=== PATIENT | male | born 1935 | race Caucasian/White ===

== ENCOUNTER 2017-11-01 22:52 | Inpatient (IN) | payer OTHER, MEDICARE ==
[~2017-11-01] VITALS: Ht 172.7 cm; Wt 79.4 kg
[~2017-11-01 22:52] MED LIST: ALPRAZOLAM0.5 MG PO; CALCIUM + D 6001 TAB PO; ECOTRIN81 MG PO; ELIQUIS5 M1 PO; FISH OIL CONC1000 M1 PO; FISH OIL CONC1000 MG; LISINOPRIL/HCTZ1 TAB PO; MEDROL4 M1 PO; METOPROLOL TART25 M1 PO; PANTOPRAZOLE SO40 MG PO; PREDNISONE5 MG PO; VITAMIN D250000 UNIT PO
--- NOTE | 2017-11-01 22:54 | ED CARDIAC/CP/PALPITATIONS ---
History of Present Illness General Chief Complaint: Chest Pain Stated Complaint: CP Source: patient, old records Exam Limitations: no limitations Vital Signs & Intake/Output Vital Signs & Intake/Output Vital Signs Date Time Temp Pulse Resp B/P B/P Pulse O2 O2 Flow FiO2 Mean Ox Delivery Rate 11/01 2306 98.8 64 18 128/64 96 Room Air ED Intake and Output 11/02 0000 11/01 1200 Intake Total Output Total Balance Patient 175 lb Weight Weight Reported by Patient Measurement Method Allergies Coded Allergies: Penicillins (Severe, UNKNOWN REACTION PER PT 02/24/16) Reconcile Medications Alprazolam 0.25 MG TABLET 1 TAB PO TID PRN ANXIETY (Reported) Apixaban (Eliquis) 5 MG TABLET 1 TAB PO BID A.fib Aspirin (Ecotrin) 81 MG ECT 1 TAB PO DAILY BLOOD THINNER (Reported) Calcium/Vitamin D (Calcium + D) 600 MG/200 IU TAB 1 TAB PO DAILY SUPPLEMENT ( Reported) LISINOPRIL/HYDROCHLOROTHIAZIDE (Lisinopril-Hctz 10-12.5 MG Tab) 10 MG-12.5 MG TABLET 1 TAB PO DAILY BP (Reported) Methylprednisolone (Medrol) 4 MG TABLET 1 TAB PO BID PMR (Reported) Metoprolol Tartrate 25 MG TABLET 0.5 TAB PO BID HEART RATE [place]-3 Fatty Acids (Fish Oil Concentrate) 1,000 MG CAPSULE 1 CAP PO DAILY SUPPLEMENT (Reported) Pantoprazole Sodium 40 MG TABLET.DR 1 TAB PO DAILY AC GI (Reported) Triage Nurses Notes Reviewed? yes Onset: Abrupt Duration: SINCE 2 PM Timing: multiple episodes today Quality/Severity: moderate Location: central Radiation: back Activities at Onset: activity Prior Chest Pain/Card Workup: no prior chest pain Associated Symptoms: NAUSEA HPI: This is an 82-year-old male with history of hypertension, A. fib on Eliquis who presents to the ER for chief complaint of chest pain that started at 2:00. He describes it as a painful sensation waxing and waning. It radiates into the back between his shoulder blades. Tonight he feels it got worse. He doesn't take an aspirin but takes daily Eliquis. No nitroglycerin. History of atrial fibrillation as reported above. He does not feel any palpitations. No shortness of breath. He was initially nauseous and thought he was going to vomit but did not. Denies any radiation of the pain to his shoulders or arms. He did have some jaw pain earlier and facial pain earlier which has resolved. His. Patient does not have a known history of coronary disease in the past before. He states that he has had chest pain multiple times in the past that he has attributed to indigestion. Past History Travel History Traveled to [place] past 21 day No Medical History Any Pertinent Medical History? see below for history Neurological: NONE EENT: HEARING LOSS Cardiovascular: AFIB, hypertension Respiratory: NONE Gastrointestinal: GERD Hepatic: NONE Renal: NONE Musculoskeletal: POLYMYALGIA RHEUMATICA Psychiatric: NONE Endocrine: NONE Blood Disorders: NONE Cancer(s): colon/rectal cancer, melanoma, prostate cancer INS[employer]ANCE [employer] SALES/Reproductive: NONE History of MRSA: No History of VRE: No History of CDIFF: No Tetanus Vaccine: 08/27/14 Surgical History Surgical History: PROSTATE REMOVAL, CA BACK SURGERY Psychosocial History Who do you live with Spouse Services at Home None What is your primary language Indonesian Tobacco Use: Never used ETOH Use: denies use Family History Family History, If Any: SISTER FHx: brain cancer MOTHER Relation not specified for: FH: breast cancer Hx Contributory? No Review of Systems Review of Systems Constitutional: Denies: see HPI, fever. EENTM: Reports: no symptoms. Respiratory: Denies: cough, short of breath, sputum production. Cardiovascular: Reports: chest pain. Denies: palpitations, peripheral edema. GI: Reports: nausea. Denies: diarrhea, vomiting. Genitourinary: Reports: no symptoms. Musculoskeletal: Reports: no symptoms. Skin: Reports: no symptoms. Neurological/Psychological: Reports: no symptoms. Hematologic/Endocrine: Denies: bruising, bleeding, polyuria, polydipsia. Immunologic/Allergic: Denies: splenectomy. All Other Systems: Reviewed and Negative Physical Exam Physical Exam General Appearance: well developed/nourished, alert, awake, anxious Head: atraumatic, normal appearance Eyes: Bilateral: normal appearance, PERRL, EOMI. Ears, Nose, Throat: normal pharynx, hearing grossly normal Neck: normal inspection, supple, full range of motion Respiratory: normal breath sounds, chest non-tender, no respiratory distress Cardiovascular: regular rate/rhythm Peripheral Pulses: 2+ radial (R), 2+ radial (L) Gastrointestinal: normal bowel sounds, soft, non-tender Back: normal inspection, normal range of motion Extremities: normal inspection, normal capillary refill, normal range of motion, no edema Neurologic/Psych: no motor/sensory deficits, awake, alert, oriented x 3 Skin: intact, normal color, warm/dry Core Measures ACS in differential dx? Yes CVA/TIA Diagnosis No Sepsis Present: No Sepsis Focused Exam Completed? No Progress Differential Diagnosis: AMI, aortic dissection, myocarditis, pancreatitis, pericarditis, pulmonary embolism, unstable angina Plan of Care: Orders Procedure Date/time Status Heart Healthy Diet 11/02 B Active Patient Data 11/[address] in observation 11/02 23 Active ED Holding Orders 11/02 23 Active Vital Signs 11/02 23 Active Code Status 11/02 23 Active Add-on Test (ER Only) 11/01 231 Active Telemetry/Seafood Preparer 11/01 230 Active LIPASE 11/01 230 Complete TROPONIN LEVEL 11/01 2257 Complete PARTIAL THROMBOPLASTIN TIME 11/01 2257 Complete PROTHROMBIN TIME 11/01 2257 Complete MAGNESIUM 11/01 2257 Complete COMPREHENSIVE METABOLIC PANEL 11/01 2257 Complete CBC WITHOUT DIFFERENTIAL 11/01 2257 Complete EKG 11/01 2252 Active Current Medications Sig/Nelly Start time Last Medication Dose Stop Time Status Admin Aspirin 325 MG ONCE ONE 11/01 2314 CAN (Aspirin) 11/01 2315 Laboratory Tests 11/01/17 2300: Anion Gap 14, Estimated GFR > 60, BUN/Creatinine Ratio 21.8, Glucose 112 H, Calcium 10.2, Magnesium 2.2, Total Bilirubin 0.3, AST 24, ALT 48, Alkaline Phosphatase 65, Troponin I < 0.01, Total Protein 7.2, Albumin 4.5, Globulin 2.7, Albumin/Globulin Ratio 1.7, Lipase 373 H, PT 11.8, INR 1.13, APTT 30, CBC w Diff NO MAN DIFF REQ, RBC 5.38, MCV 89.4, MCH 28.3, RDW 16.3 H, MPV 8.5, Gran % 72.8, Lymphocytes % 14.5 L, Monocytes % 11.3 H, Eosinophils % 1.0, Basophils % 0.4, Absolute Granulocytes 10.3 H, Absolute Lymphocytes 2.0, Absolute Monocytes 1.6 H, Absolute Eosinophils 0.1, Absolute Basophils 0.1, PUBS MCHC 31.7 L CP RESOLVED AFTER ASPIRIN/NITRO. CT DISEECTION SCAN NORMAL. D/W DR GAVIN, PLACE ON TELE FOR 23 HR OBS. LEFT MESSAGE FOR DR GARCIA TO EVALUATE HIS PATIENT IN AM. Diagnostic Imaging: Viewed by Me: Radiology Read, CT Scan. Discussed w/RAD: Radiology Read, CT Scan. Radiology Impression: PATIENT: MAGUE DELVALLE JR PRESENT AGE: 82 PATIENT ACCOUNT NO: [id number] : 37 LOCATION: [facility] ORDERING PHYSICIAN: Elif Beebe MD SERVICE DATE: 11/01/17 EXAM TYPE: CAT - CTA CHEST-AORTIC DISSECTION EXAMINATION: CT ANGIOGRAM CHEST WITHOUT AND WITH CONTRAST CLINICAL INFORMATION: Chest pain radiating to the back. History of atrial fibrillation. COMPARISON: Radiograph from today. TECHNIQUE: Initial noncontrast chest CT was performed. Multidetector volumetric imaging of the chest was then performed after administration of 10 5 mL of Optiray 350 IV contrast. Coronal, sagittal, and three-dimensional/MIP reformatted images were obtained and reviewed. DLP: 534 mGy-cm FINDINGS: Vascular: 1. There is a 3 cusped aortic valve. Normal origins of the coronary arteries. 2. The ascending thoracic aorta is normal in course and caliber without dissection. 3. The aortic arch is normal in course and caliber. Normal 3 vessel branching configuration. The great vessels are grossly patent. 4. The descending thoracic aorta is normal in caliber with slightly tortuous course. No dissection. Scattered atherosclerotic calcifications noted. 5. No central pulmonary embolism noted. Nonvascular: The central airways are patent. Dependent atelectasis bilaterally in the lungs. No dense consolidation. No pleural effusion or pneumothorax. The heart is mildly prominent. No pericardial effusion. No mediastinal lymphadenopathy. There is a 1.7 cm hypoattenuating nodule in the right lobe of the thyroid gland. No axillary lymphadenopathy. No chest wall mass. The visualized portion of the upper abdomen is unremarkable. No acute or suspicious osseous abnormality. Multilevel degenerative changes are seen in the spine. IMPRESSION: 1. No acute vascular abnormality. No evidence of aortic aneurysm or dissection. 2. No acute pulmonary findings. Bibasilar atelectasis. 3. 1.7 cm right thyroid nodule. This can be further evaluated by ultrasound. DICTATED BY: [facility] DATE/TIME DICTATED:11/01/17 507 COMMISSION ASSOCIATE: ALISON DATE/TIME TRANSCRIBED:11/01/172349 CONFIDENTIAL, DO NOT COPY WITHOUT APPROPRIATE AUTHORIZATION. <Electronically signed in Other Vendor System> SIGNED BY: Deon Kelley MD 11/01/172357 CXR Impression: PATIENT: MAGUE DELVALLE JR PRESENT AGE: 82 PATIENT ACCOUNT NO: [id number] : 37 LOCATION: [facility] ORDERING PHYSICIAN: Elif Beebe MD SERVICE DATE: 11/01/17 EXAM TYPE: RAD - XRY -PORTABLE CHEST XRAY EXAMINATION: XR PORTABLE CHEST CLINICAL INFORMATION: Chest pain radiating to the back COMPARISON: Chest x-ray 03/07/2016 TECHNIQUE: Portable frontal view of the chest was obtained. 11:06 PM FINDINGS: Cardiac mediastinal contours are normal. No widening of the mediastinum. Lung volume is low. No acute abnormality. No significant pulmonary vascular congestion. No infiltrate or pleural effusion. No pneumothorax. IMPRESSION: No acute abnormality of chest. DICTATED BY: Ubaldo Silvestre MD DATE/TIME DICTATED:11/01/172321 COMMISSION ASSOCIATE:ALISON DATE/TIME TRANSCRIBED:11/01/172321 CONFIDENTIAL, DO NOT COPY WITHOUT APPROPRIATE AUTHORIZATION. <Electronically signed in Other Vendor System> SIGNED BY: Ubaldo Silvestre MD 11/01/172325 Initial ED EKG: NSR, LVH, LAD Rhythm Strip: normal sinus rhythm Departure Departure Time of Disposition: 24 Disposition: STILL A PATIENT Condition: Stable Clinical Impression Primary Impression: ACS (acute coronary syndrome) Referrals: [facility],Yonas Figueredo (PCP/Family) Departure Forms: Customer Survey General Discharge Information Observation Note Spoke With: Chen Gavin MD Physician Advisor Notified: KINSEY EBCK DO Place Patient In: Non-ED OBS Care Area Rationale for Observation: My rational for observation is as follows [TELE MONITOR, ASPIRIN, NITRATES, SERIAL EKG/TROPONIN, CARDIOLOGY EVALUATION, CONSIDER ECHOCARDIOGRAM]. Critical Care Note Critical Care Note Critical Care Time: non-applicable
[2017-11-01 23:13] LABS: ABSOLUTE BASOPHIL COUNT 0.1 /CUMM (0.0-0.2); ABSOLUTE EOSINOPHIL COUNT 0.1 /CUMM (0.0-0.7); ABSOLUTE GRANULOCYTE CT 10.3 /CUMM (1.4-6.5); ABSOLUTE MONOCYTE COUNT 1.6 /CUMM (0.10-0.60); BASOPHIL % 0.4 % (0.0-2.0); GRANULOCYTE % 72.8 % (42.2-75.2); MEAN CORPUSCULAR HGB 28.3 PG (27.0-31.0); MEAN CORPUSCULAR HGB CONC 31.7 G/DL (33.0-37.0); MEAN CORPUSCULAR VOLUME 89.4 FL (80.0-94.0); MEAN PLATELET VOLUME 8.5 FL (7.4-10.4); PLATELET COUNT 270 /CUMM (130-400); RBC DISTRIBUTION WIDTH 16.3 % (11.5-14.5); RED BLOOD CELL CT 5.38 /CUMM (4.70-6.10); WHITE BLOOD CELL COUNT 14.1 /CUMM (4.8-10.8)
[2017-11-01 23:22] LABS: PT 11.8 SEC (9.4-12.5); PTT 30 SEC (25-37)
--- NOTE | 2017-11-01 23:26 | RADIOLOGY REPORT ---
EXAMINATION: XR PORTABLE CHEST CLINICAL INFORMATION: Chest pain radiating to the back COMPARISON: Chest x-ray 03/07/2016 TECHNIQUE: Portable frontal view of the chest was obtained. 11:06 PM FINDINGS: Cardiac mediastinal contours are normal. No widening of the mediastinum. Lung volume is low. No acute abnormality. No significant pulmonary vascular congestion. No infiltrate or pleural effusion. No pneumothorax. IMPRESSION: No acute abnormality of chest.
--- NOTE | 2017-11-01 23:58 | CT SCAN REPORT ---
EXAMINATION: CT ANGIOGRAM CHEST WITHOUT AND WITH CONTRAST CLINICAL INFORMATION: Chest pain radiating to the back. History of atrial fibrillation. COMPARISON: Radiograph from today. TECHNIQUE: Initial noncontrast chest CT was performed. Multidetector volumetric imaging of the chest was then performed after administration of 10 5 mL of Optiray 350 IV contrast. Coronal, sagittal, and three-dimensional/MIP reformatted images were obtained and reviewed. DLP: 534 mGy-cm FINDINGS: Vascular: 1. There is a 3 cusped aortic valve. Normal origins of the coronary arteries. 2. The ascending thoracic aorta is normal in course and caliber without dissection. 3. The aortic arch is normal in course and caliber. Normal 3 vessel branching configuration. The great vessels are grossly patent. 4. The descending thoracic aorta is normal in caliber with slightly tortuous course. No dissection. Scattered atherosclerotic calcifications noted. 5. No central pulmonary embolism noted. Nonvascular: The central airways are patent. Dependent atelectasis bilaterally in the lungs. No dense consolidation. No pleural effusion or pneumothorax. The heart is mildly prominent. No pericardial effusion. No mediastinal lymphadenopathy. There is a 1.7 cm hypoattenuating nodule in the right lobe of the thyroid gland. No axillary lymphadenopathy. No chest wall mass. The visualized portion of the upper abdomen is unremarkable. No acute or suspicious osseous abnormality. Multilevel degenerative changes are seen in the spine. IMPRESSION: 1. No acute vascular abnormality. No evidence of aortic aneurysm or dissection. 2. No acute pulmonary findings. Bibasilar atelectasis. 3. 1.7 cm right thyroid nodule. This can be further evaluated by ultrasound.
--- NOTE | 2017-11-02 00:49 | History & Physical ---
[facility] 11/02/17 0049: General Information and HPI MD Statement: I have seen and personally examined MAGUE DELVALLE JR and documented this H&P. The patient is a 82 year old M who presented with a patient stated chief complaint of [CP]. Source of Information: patient Exam Limitations: no limitations History of Present Illness: The patient is 82-year-old gentleman with past medical history of atrial fibrillation on Eliquis and metoprolol, polymyalgia rheumatica, GERD, hypertension, prostate cancer status post surgery and consists versus precancerous colon polyp status post polypectomy The patient is presenting to [facility] ED on 11/02 with complaint of chest pain The patient was in usual state of health until this afternoon when he experienced a chest pain around 2 PM. Patient attributed this chest pain to his history of GERD and tried Tums and pantoprazole. It resolved after sometime. Tonight when patient was getting ready for bed patient started experiencing chest pain again which was much more uncomfortable and made patient feel nervous. Patient describes it as a funny feeling. The patient's chest pain was located in the middle of the chest and is somewhat in epigastric region as well, radiating between his shoulder blades. He also experienced pain bilaterally on his cheeks. It was not radiating to left arm or jaw. Patient felt nauseated little short of breath. This prompted a visit to ED the pain resolved after receiving nitroglycerin. Currently patient is pain-free. As per patient he has had multiple episodes of chest pain in the past which he has attributed to GERD and indigestion Review of system is negative for fevers chills or urinary complaints. Denies cough, wheezing, change in bowel movement Of note patient was diagnosed of atrial fibrillation in February 2016 and echo showed ejection fraction of 60%. Patient underwent a stress test 15 years ago which was within normal limits Allergies/Medications Allergies: Coded Allergies: Penicillins (Severe, UNKNOWN REACTION PER PT 02/24/16) Home Med list Alprazolam 0.25 MG TABLET 1 TAB PO TID PRN ANXIETY (Reported) Apixaban (Eliquis) 5 MG TABLET 1 TAB PO BID A.fib Aspirin (Ecotrin) 81 MG ECT 1 TAB PO DAILY BLOOD THINNER (Reported) Calcium/Vitamin D (Calcium + D) 600 MG/200 IU TAB 1 TAB PO DAILY SUPPLEMENT ( Reported) Cyanocobalamin (Vitamin B-12) 1,000 MCG TABLET 3 TAB PO DAILY SUPPLEMENT ( Reported) LISINOPRIL/HYDROCHLOROTHIAZIDE (Lisinopril-Hctz 10-12.5 MG Tab) 10 MG-12.5 MG TABLET 1 TAB PO DAILY BP (Reported) Magnesium Oxide (Magnesium) 400 MG CAPSULE 1 CAP PO DAILY SUPPLEMENT ( Reported) Methylprednisolone (Medrol) 4 MG TABLET 1 TAB PO TID PMR (Reported) Metoprolol Tartrate 25 MG TABLET 1 TAB PO BID HEART RATE [place]-3 Fatty Acids (Fish Oil Concentrate) 1,000 MG CAPSULE 1 CAP PO DAILY SUPPLEMENT (Reported) Pantoprazole Sodium 40 MG TABLET.DR 1 TAB PO DAILY AC GI (Reported) Compliance With Home Meds: GOOD Past History Travel History Traveled to [place] past 21 day No Medical History Neurological: NONE EENT: HEARING LOSS Cardiovascular: AFIB, hypertension Respiratory: NONE Gastrointestinal: GERD Hepatic: NONE Renal: NONE Musculoskeletal: POLYMYALGIA RHEUMATICA Psychiatric: NONE Endocrine: NONE Blood Disorders: NONE Cancer(s): colon/rectal cancer, prostate cancer DIRECTOR TELEVISION/Reproductive: NONE History of MRSA: No History of VRE: No History of CDIFF: No Tetanus Vaccine: 08/27/14 Surgical History Surgical History: PROSTATE REMOVAL, CA BACK SURGERY ECHO Results (as available) Date of last Echo 02/25/16 EF% 60 Past Family/Social History Family History Relations & Conditions if any MOTHER (brain CA). FATHER (CVA). SISTER (breast CA). Psychosocial History Where do you live? Home Who Do You Live With? spouse Services at Home: None Primary Language: Malian Smoking Status: Never Smoked ETOH Use: occasional use Illicit Drug Use: denies illicit drug use Functional Ability ADLs Independent: dressing, eating, toileting, bathing. Ambulation: independent IADLs Independent: shopping, housework, finances, food prep, telephone, transportation , medication admin. Review of Systems Review of Systems Constitutional: Denies: chills, malaise. EENTM: Reports: no symptoms. Cardiovascular: Reports: chest pain. Denies: palpitations, syncope. Respiratory: Denies: sputum production, wheezing. GI: Reports: no symptoms. Genitourinary: Reports: no symptoms. Musculoskeletal: Reports: no symptoms. Skin: Reports: no symptoms. Exam & Diagnostic Data Last 24 Hrs of Vital Signs/I&O Vital Signs Date Time Temp Pulse Resp B/P B/P Pulse O2 O2 Flow FiO2 Mean Ox Delivery Rate 11/01 2305 98.8 64 18 128/64 96 Room Air Intake & Output 11/02 0800 11/02 0000 11/01 1600 Intake Total Output Total Balance Patient 175 lb Weight Weight Reported by Patient Measurement Method Physical Exam General Appearance Alert, Oriented X3, Cooperative, No Acute Distress Skin No Rashes HEENT Atraumatic, PERRLA, EOMI, Mucous Membr. moist/pink Neck Supple Cardiovascular Normal S1, Normal S2, No Murmurs Lungs Clear to Auscultation, Normal Air Movement Abdomen Normal Bowel Sounds, Soft, No Tenderness Neurological Normal Speech Extremities No Clubbing, No Cyanosis, No Edema, small bruises Last 24 Hrs of Labs/Nikita: Laboratory Tests 11/01/170: Anion Gap 14, Estimated GFR > 60, BUN/Creatinine Ratio 21.8, Glucose 112 H, Calcium 10.2, Magnesium 2.2, Total Bilirubin 0.3, AST 24, ALT 48, Alkaline Phosphatase 65, Troponin I < 0.01, Total Protein 7.2, Albumin 4.5, Globulin 2.7, Albumin/Globulin Ratio 1.7, Lipase 373 H, PT 11.8, INR 1.13, APTT 30, CBC w Diff NO MAN DIFF REQ, RBC 5.38, MCV 89.4, MCH 28.3, RDW 16.3 H, MPV 8.5, Gran % 72.8, Lymphocytes % 14.5 L, Monocytes % 11.3 H, Eosinophils % 1.0, Basophils % 0.4, Absolute Granulocytes 10.3 H, Absolute Lymphocytes 2.0, Absolute Monocytes 1.6 H, Absolute Eosinophils 0.1, Absolute Basophils 0.1, PUBS MCHC 31.7 L Diagnostic Data EKG Results atrial fibrillation HR 60's narrow QRS complex, good RR progression, QTC 400, No ST segment changes, Normal appearing T waves CXR Results IMPRESSION: No acute abnormality of chest Other Results CT ANGIOGRAM CHEST WITHOUT AND WITH CONTRAST IMPRESSION: 1. No acute vascular abnormality. No evidence of aortic aneurysm or dissection. 2. No acute pulmonary findings. Bibasilar atelectasis. 3. 1.7 cm right thyroid nodule. This can be further evaluated by ultrasound. ECHOCARDIOGRAM 02/25/16 1. Mild to moderate aortic sclerosis is present with minimal to mild aortic insufficiency. 2. Mitral leaflet thickening is present with minimal to mild mitral insufficiency and mild left atrial enlargement. There is no evidence of valvular prolapse. 3. A physiologic pericardial effusion is present. 4. The left ventricular chamber size and systolic function are normal with no resting wall motion abnormalities. 5. Minimal to mild tricuspid and pulmonic insufficiency are present with no evidence of pulmonary hypertension. 6. No prior study was available for comparison. Assessment/Plan Assessment: The patient is 82-year-old gentleman with past medical history of atrial fibrillation on Eliquis and metoprolol, polymyalgia rheumatica, GERD, hypertension, prostate cancer status post surgery and consists versus precancerous colon polyp status post polypectomy The patient is presenting to [facility] ED on 11/02 with complaint of chest pain -VS are within normal limits -Pertinent labs WBC 1.1 BUN 24 lipase 373 -CTA findings dictated above, echo done in 2015 findings dictated above Patient is being admitted to telemetry floor and is being treated and evaluated for following conditions #Chest pain rule out ACS Patient is presenting with chest pain ACS needs to be ruled out. First set of troponins is negative and EKG did not show any acute ST elevations. -Telemetry monitoring -Serial troponins and EKG -Continue aspirin and metoprolol -Nitrostat -Check lipid profile -Cardiology consult in the morning -Consider echocardiogram with EKG changes/troponins positive #Leukocytosis patient is presenting with a white count of 14.1 which can be attributed to steroid use. There is no obvious source of infection. Patient denies urinary symptoms chest x-ray clear no sign of skin infection -Monitor fever and WBC curve -Monitor off antibiotics #Atrial fibrillation -Continuous telemetry monitoring. Continue metoprolol and Eliquis #Chronic medical conditions hypertension, GERD and PMR continue lisinopril, hydrochlorothiazide, omperazole and methylprednisone #Full code/heart healthy diet/DVT prophylaxis with Eliquis As Ranked By This Provider Problem List: 1. ACS (acute coronary syndrome) Core Measures/Misc (07/02) Acute Coronary Syndrome ACS Diagnosis: No Congestive Heart Failure Congestive Heart Failure Diagnosis No Cerebrovascular Accident CVA/TIA Diagnosis: No VTE (View Protocol) VTE Risk Factors Age>40 No Mechanical VTE Prophylaxis d/t N/A MechProphylax Ordered No VTE Pharm Prophylaxis d/t NA PharmProphylax ordered Sepsis (View protocol) Sepsis Present: No Sukhdev Wyatt 11/02/17 0154: Resident Review Statement Resident Statement: discussed with international logistics analyst Other Findings: 82-year-old man with past medical history of A. fib on Eliquis, hypertension, PMR on steroids, GERD, history of prostate cancer status post resection presented to ER today with complaint of mid chest pain radiating to back and both sides of face. According to patient pain started around 2:30 in afternoon when he was resting. He attributes his chest pain to indigestion. He took Maalox and pantoprazole but his pain did not go away. He denies any palpitations, difficulty breathing, diaphoresis, dizziness or lightheadedness. He was also feeling abdominal bloating and nausea. No vomiting. Upon arrival to the ER his temperature was 98.8, pulse 64, respiratory rate 18, blood pressure 128/64 and oxygen saturation 96% on room air. Pertinent labs are WBC 14.1, first troponins negative. Chest x-ray unremarkable. CTA chest did not show any aortic aneurysm or dissection. He was given aspirin 325 mg by mouth by EMS and ER he got sublingual nitroglycerin 0.4 mg 1. Upon our evaluation his chest pain has completely resolved. Problem list 1. Chest pain resolved after aspirin and sublingual nitroglycerin. History of A. fib on Eliquis. No history of FL. EKG did not show any acute ST-T wave changes. First troponin negative. Last echocardiogram 2015 did not show any significant abnormality. 2. Leukocytosis probably secondary to steroids. No evidence of any obvious infection 3. History of hypertension. On hydrochlorothiazide and lisinopril 4. History of PMR on steroids 5. History of GERD on pantoprazole Plan * Admitted on telemetry floor * Continue telemetry monitoring * Keep electrolytes within normal range * Serial troponins and EKGs * Echocardiogram * Cardio consult in a.m. * Will check fasting lipid profile * Will continue all home medications * Heart healthy diet * DVT prophylaxis * Full code RomaineJuan Jlobo 11/02/17 0350: Attending MD Review Statement Attending Statement Attending MD Statement: examined this patient, discuss w/resident/PA/THERMO CEMENTING FOLDER OPERATOR, agreed w/resident/PA/THERMO CEMENTING FOLDER OPERATOR, reviewed EMR data (avail), reviewed images, amended to note Attending Assessment/Plan: CC: Chest pain PMH: A. fib, HTN, GERD, PMR, prostate cancer, colon cancer with colonic polyp, status post resection and polypectomy Episode of chest pain. Initially patient's chest pain started around 2 PM, he thought he might be heartburn, took something and did not pay much attention. Later on after his supper patient started to notice similar pain again, more so in epigastric region going up behind the sternum and then going to back in between the scapulae, patient denied any dizziness, numbness, shortness of breath, cough or expectoration. This time the pain was not getting better so he came to ER. His pain improved after treatment with some medication in ER. When asked patient states that I may be having similar kind of pains in the past but did not pay much attention, probably secondary to heartburn, pain is random and nonexertional, , usually relieved with acid medication. Vitals: Afebrile, pulse in 60s, RR 18, blood pressure 128/64, saturating 96% on room air. On exam: A O 3, cooperative, no acute distress, neck supple, JVD normal, no lymphadenopathy, mucosa moist, no focal neurological deficit, no dependent edema , no obvious skin rashes or inflammation CVS: S1-S2, RRR. RS: Clear to auscultate bilaterally. Abdomen: Soft, NT, ND, bowel sounds present. Labs: CBC, BMP, LFT, troponin unremarkable except mild leukocytosis, lipase 373, ECG: No acute changes CTA chest: 1. No acute vascular abnormality. No evidence of aortic aneurysm or dissection. 2. No acute pulmonary findings. Bibasilar atelectasis. 3. 1.7 cm right thyroid nodule. This can be further evaluated by ultrasound. Assessment and plan 82-year-old male with multiple comorbidities presented in ER for an episode of chest pain happened 2 times today, initially at 2 PM when he noted considering heartburn, second episode after meal this evening, radiating to back and pain relieved only after nitroglycerin in ER. No acute ECG changes, troponin unremarkable, complete physical examination unremarkable. Given his extensive cardiac history is severe should be ruled out, patient needs observation on telemetry floor for any further cardiac events. Errantly patient is pain-free, no indication for heparin. Thyroid no dual needs outpatient evaluation. + Chest pain rule out ACS + History of A. fib, HTN, GERD, PMR, - Place in observation on telemetry - Continuous telemetry monitoring - Serial troponin and EKGs - 2-D echo in a.m. if significant increase in troponin - Cardiology consult in a.m. - Continue aspirin, beta block in significant increase in troponin, persistent chest pain er - Continue heparin drip - Continue rest of his home medications
[2017-11-02] MEDS ORDERED: VITAMIN B-121000 MC3 PO (01:29)
[2017-11-02] MEDS ORDERED: MAGNESIUM400 M1 PO (01:31)
[2017-11-02] MEDS ORDERED: METOPROLOL TART25 M1 PO (01:32)
--- NOTE | 2017-11-02 07:46 | Cons- Cardiology ---
General Information and HPI Consulting Request Date of Consult: 11/02/17 Requested By: Chen Gavin MD Reason for Consult: chest pain Source of Information: patient, old records Exam Limitations: no limitations History of Present Illness: the patient is an 82-year-old male, well-known to me, who was last seen by me in the office within the last 2 months. His past medical history is remarkable for atrial fibrillation on oral anticoagulation, polymyalgia rheumatica, reflux disease, hypertension, prior prostate cancer, etc. The patient presented to the [place] emergency room on 11/02 with complaints of chest discomfort. Apparently, the patient began having chest discomfort in his upper epigastric area around 2 PM on the day of the visit. The symptoms were not relieved by multiple Tums, it waxed and waned, however, due to persistent symptoms which ultimately radiated to his upper back and neck, the patient came to the emergency room for further evaluation.some associated nausea and dyspnea were noted. Ultimately, in the emergency room, the patient did receive sublingual nitroglycerin which he feels helped the discomfort significantly. the patient's ECG, however, is essentially unrevealing and his serial troponins have been negative. His lipase was noted to be mildly elevated. At the moment, the patient is asymptomatic. Allergies/Medications Allergies: Coded Allergies: Penicillins (Severe, UNKNOWN REACTION PER PT 02/24/16) Home Med List: Alprazolam 0.25 MG TABLET 1 TAB PO TID PRN ANXIETY (Reported) Apixaban (Eliquis) 5 MG TABLET 1 TAB PO BID A.fib Aspirin (Ecotrin) 81 MG ECT 1 TAB PO DAILY BLOOD THINNER (Reported) Calcium/Vitamin D (Calcium + D) 600 MG/200 IU TAB 1 TAB PO DAILY SUPPLEMENT ( Reported) Cyanocobalamin (Vitamin B-12) 1,000 MCG TABLET 3 TAB PO DAILY SUPPLEMENT ( Reported) LISINOPRIL/HYDROCHLOROTHIAZIDE (Lisinopril-Hctz 10-12.5 MG Tab) 10 MG-12.5 MG TABLET 1 TAB PO DAILY BP (Reported) Magnesium Oxide (Magnesium) 400 MG CAPSULE 1 CAP PO DAILY SUPPLEMENT ( Reported) Methylprednisolone (Medrol) 4 MG TABLET 1 TAB PO TID PMR (Reported) Metoprolol Tartrate 25 MG TABLET 1 TAB PO BID HEART RATE [place]-3 Fatty Acids (Fish Oil Concentrate) 1,000 MG CAPSULE 1 CAP PO DAILY SUPPLEMENT (Reported) Pantoprazole Sodium 40 MG TABLET.DR 1 TAB PO DAILY AC GI (Reported) Current Medications: Current Medications Sig/Nelly Start time Last Medication Dose Route Stop Time Status Admin Acetaminophen 0 .STK-MED ONE 11/02 0642 DC PO Acetaminophen 650 MG Q8 11/02 0600 AC 11/02 PO 0641 Apixaban 5 MG BID 11/02 1000 AC PO Aspirin 0 .STK-MED ONE 11/02 0018 DC PO Aspirin 325 MG ONCE ONE 11/02 0015 DC 11/02 PO 11/02 0016 0016 Aspirin 325 MG ONCE ONE 11/01 2315 CAN PO 11/01 2316 Aspirin Buffered 81 MG DAILY 11/02 1000 AC PO Hydrochlorothiazide 12.5 MG DAILY 11/02 1000 AC PO Lisinopril 10 MG DAILY 11/02 1000 AC PO Magnesium Oxide 400 MG DAILY 11/02 1000 AC PO Methylprednisolone 4 MG TID 11/02 1000 AC PO Metoprolol Tartrate 25 MG BID 11/02 1000 AC PO Nitroglycerin 0 .STK-MED ONE 11/01 2333 DC SL Nitroglycerin 0.4 MG ONCE ONE 11/01 2315 DC 11/01 SL 11/01 2316 2348 Omeprazole 40 MG DAILY AC 11/02 0700 AC 11/02 PO 0641 Omeprazole 0 .STK-MED ONE 11/02 0642 DC PO Past History Travel History Traveled to [place] past 21 day No Medical History Neurological: NONE EENT: HEARING LOSS Cardiovascular: AFIB, hypertension Respiratory: NONE Gastrointestinal: GERD Hepatic: NONE Renal: NONE Musculoskeletal: POLYMYALGIA RHEUMATICA Psychiatric: NONE Endocrine: NONE Blood Disorders: NONE Cancer(s): colon/rectal cancer, prostate cancer 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 FATHER (CVA). SISTER (breast CA). Psychosocial History Where Do You Live? Home Who Do You Live With? spouse Services at Home: None Primary Language: Georgian Smoking Status: Never Smoked ETOH Use: occasional use Illicit Drug Use: denies illicit drug use Functional Ability ADLs Independent: dressing, eating, toileting, bathing. Ambulation: independent IADLs Independent: shopping, housework, finances, food prep, telephone, transportation , medication admin. ECHO Results (as available) Date of last Echo 02/25/16 EF% 60 Exam & Diagnostic Data Vital Signs and I&O Vital Signs Date Time Temp Pulse Resp B/P B/P Pulse O2 O2 Flow FiO2 Mean Ox Delivery Rate 11/02 453 70 20 155/79 98 Room Air 11/01 2306 98.8 64 18 128/64 96 Room Air Intake & Output 11/02 0800 11/02 0000 11/01 1600 11/01 0800 11/01 0000 10/31 1600 Intake Total Output Total Balance Patient 175 lb Weight Weight Reported by Patient Measurement Method Labs/Nikita Results: Laboratory Tests 11/02 11/01 0454 2300 Chemistry Sodium (137 - 145 mmol/L) 141 Potassium (3.5 - 5.1 mmol/L) 3.7 Chloride (98 - 107 mmol/L) 98 Carbon Dioxide (22 - 30 mmol/L) 29 Anion Gap (5 - 16) 14 BUN (9 - 20 mg/dL) 24 H Creatinine (0.7 - 1.2 mg/dL) 1.1 Estimated GFR (>60 ml/min) > 60 BUN/Creatinine Ratio (7 - 25 %) 21.8 Glucose (65 - 99 mg/dL) 112 H Calcium (8.4 - 10.2 mg/dL) 10.2 Magnesium (1.6 - 2.3 mg/dL) 2.2 Total Bilirubin (0.2 - 1.3 mg/dL) 0.3 AST (17 - 59 U/L) 24 ALT (21 - 72 U/L) 48 Alkaline Phosphatase (< 127 U/L) 65 Troponin I (<0.11 ng/ml) < 0.01 < 0.01 Total Protein (6.3 - 8.2 g/dL) 7.2 Albumin (3.5 - 5.0 g/dL) 4.5 Globulin (1.9 - 4.2 gm/dL) 2.7 Albumin/Globulin Ratio (1.1 - 2.2 %) 1.7 Triglycerides (<150 mg/dL) 78 Cholesterol (< 200 MG/DL) 210 H LDL Cholesterol, Calc (65 - 129 mg/dL) 150 H HDL Cholesterol (40 - 60 mg/dL) 45 Cholesterol/HDL Ratio (0.00 - 4.88 %) 5 H Lipase (23 - 300 U/L) 373 H Coagulation PT (9.4 - 12.5 SEC) 11.8 INR (0.90 - 1.17) 1.13 APTT (25 - 37 SEC) 30 Hematology CBC w Diff NO MAN DIFF REQ WBC (4.8 - 10.8 /CUMM) 14.1 H RBC (4.70 - 6.10 /CUMM) 5.38 Hgb (14.0 - 18.0 G/DL) 15.2 Hct (42 - 52 %) 48.0 MCV (80.0 - 94.0 FL) 89.4 MCH (27.0 - 31.0 PG) 28.3 RDW (11.5 - 14.5 %) 16.3 H Plt Count (130 - 400 /CUMM) 270 MPV (7.4 - 10.4 FL) 8.5 Gran % (42.2 - 75.2 %) 72.8 Lymphocytes % (20.5 - 51.1 %) 14.5 L Monocytes % (1.7 - 9.3 %) 11.3 H Eosinophils % (0 - 5 %) 1.0 Basophils % (0.0 - 2.0 %) 0.4 Absolute Granulocytes (1.4 - 6.5 /CUMM) 10.3 H Absolute Lymphocytes (1.2 - 3.4 /CUMM) 2.0 Absolute Monocytes (0.10 - 0.60 /CUMM) 1.6 H Absolute Eosinophils (0.0 - 0.7 /CUMM) 0.1 Absolute Basophils (0.0 - 0.2 /CUMM) 0.1 PUBS MCHC (33.0 - 37.0 G/DL) 31.7 L Diagnostic Data EKG Results normal sinus rhythm with no significant abnormalities CXR Results FINDINGS: Cardiac mediastinal contours are normal. No widening of the mediastinum. Lung volume is low. No acute abnormality. No significant pulmonary vascular congestion. No infiltrate or pleural effusion. No pneumothorax. IMPRESSION: No acute abnormality of chest. Other Results CTA chest: IMPRESSION: 1. No acute vascular abnormality. No evidence of aortic aneurysm or dissection. 2. No acute pulmonary findings. Bibasilar atelectasis. 3. 1.7 cm right thyroid nodule. This can be further evaluated by ultrasound. Assessment/Plan Assessment/Plan assessment: 1. Chest pain syndrome-at the moment, the symptoms may be GI in nature but the possibility of cardiac symptoms cannot be excluded. The symptoms seem to have improved with nitroglycerin which suggests the possibility of angina, esophageal spasm, etc. Despite this fact, the ECG shows no remarkable abnormalities and serial troponins are negative. 2. Leukocytosis 3. Hypertension 4. History of atrial fibrillation 5. History of PMR on steroids 6. History of reflux disease 7. Right thyroid nodule Recommendations: -Repeat ECG today. -Further evaluation to rule out the possibility of pancreatitis, etc. -Continue current treatment for now. -I discussed the situation in detail with the patient and his . I believe that the patient would benefit from a follow-up pharmacologic nuclear stress test later as an outpatient. I do not believe that the patient needs to have this done while in the hospital. Consult Acknowledgment - Thank you for your consult request.
--- NOTE | 2017-11-02 07:56 | PN-Observation ---
Delphine Smith 11/02/17 0756: Observation Note Observation Note _ I have personally examined MAGUE DELVALLE JR. him disposition is uncertain at this time. Before a determination can be made, he requires continued observation for the following reasons Rule out ACS []. Assessment/Plan Assessment: As patient is 82-year-old gentleman with past medical history significant for atrial fibrillation on Eliquis, hypertension, polymyalgia rheumatica, GERD, hypertension, prostate cancer status post resection and colonic polyps came in with chief complaint of chest pain. Patient was kept in observation on telemetry floor to rule out ACS. During his hospital stay we will address following problems Problem #1 chest pain would rule out ACS most likely is dyspepsia/ musculoskeletal in origin. Serial troponin and EKGs were done which came back negative. Cardiology evaluation was requested as patient might need a stress test which could be done as outpatient. We will do echocardiogram to look for any wall motion abnormalities valvular dysfunction and lithotomy and ejection fraction. We will provide him with proton pump inhibitors History of atrial fibrillation on anticoagulation We will continue his home dose of Eliquis Problem #3 history of hypertension We will continue all his home medications. Problem List: 1. Atrial fibrillation 2. ACS (acute coronary syndrome) DVT/Prophylaxis: pharmacological Subjective Follow-up For: Chest pain rule out ACS Complaints: no complaints Subjective: Patient was seen and examined this morning. He was lying comfortably in bed without any complaints. His chest pain was substernal, burning in nature, 4 out of 10 is not there anymore. He was slightly experiencing left arm pain which most likely is musculoskeletal in region. He remained hemodynamically stable and afebrile. Review of Systems Constitutional: Denies: chills, diaphoresis, fever. Cardiovascular: Denies: chest pain, edema, orthopena. Respiratory: Denies: hemoptysis, orthopnea. Gastrointestinal: Denies: constipation, diarrhea. Objective Last 24 Hrs of Vital Signs/I&O Vital Signs Date Time Temp Pulse Resp B/P B/P Pulse O2 O2 Flow FiO2 Mean Ox Delivery Rate 11/02 1401 97.8 78 20 153/83 96 Room Air 11/02 1130 97.0 70 18 162/92 100 Room Air 11/02 0831 98.2 63 18 158/77 98 Room Air 11/02 0454 70 20 155/79 98 Room Air 11/01 2306 98.8 64 18 128/64 96 Room Air Intake & Output 11/02 1600 11/02 0800 11/02 0000 Intake Total 200 Output Total Balance 200 Intake, Oral 200 Patient 175 lb 175 lb Weight Weight Reported by Patient Measurement Method Physical Exam General Appearance: Alert, Oriented X3, Cooperative, No Acute Distress Cardiovascular: Regular Rate, Normal S1, Normal S2 Lungs: Normal Air Movement Abdomen: Soft Extremities: No Clubbing, No Cyanosis, No Edema Serafin Swann MD 11/02/17 1417: Observation Note Observation Note _ I have personally examined MAGUE DELVALLE JR. him disposition is uncertain at this time. Before a determination can be made, he requires continued observation for the following reasons ; patient is complaining of abdominal pain and needs to be evaluated further. Addendum Addendum Patient seen and examined. Resting comfortably and not in any distress. Denies any further chest pain. Afebrile hemodynamically stable. Cardiac enzymes have been negative 2 and EKG shows no ischemic changes. Patient reports however that symptoms has become with abdominal discomfort that got worse before he developed chest discomfort. Admits to some nausea but denies any vomiting. Reports no change in his regular bowel movements. Denies any blood in the stools. It is noted on admission he had a mildly elevated lipase levels. On examination abdomen is mildly distended but soft, nontender with normal bowel sounds. No rebound tenderness or guarding. Rest of his physical exam is unremarkable. Problems: 1. Chest pain; resolved 2. Abdominal pain; elevated lipase levels is concerning for pancreatitis. 3. History of polymyalgia rheumatica. 4. Atrial fibrillation; rate controlled on anticoagulation with Eliquis. 5. Prostate cancer status post surgery Plan: -ACS has been ruled out. Follow-up with the cardiology service regarding need for further ischemic workup in the form of stress test. -Obtain CT abdomen pelvis to evaluate for pancreatitis and rule out any other intra-abdominal pathology. -Continue metoprolol for rate control. Continue anticoagulant with Eliquis. -Hydrate with half normal saline at 100 cc an hour.
[2017-11-02 16:30] VITALS: BP 138/76
--- NOTE | 2017-11-02 16:44 | CT SCAN REPORT ---
EXAMINATION: CT ABDOMEN AND PELVIS WITHOUT CONTRAST CLINICAL INFORMATION: Elevated lipase and epigastric pain. Rule out pancreatitis. COMPARISON: Portions of chest CTA of 11/01/2017. Abdominal ultrasound of 11/20/2015. TECHNIQUE: Multidetector volumetric imaging was performed from the superior aspect of the liver through the pubic symphysis. Sagittal and coronal reformatted images were obtained on the technologist's workstation. DLP: 356.41 mGy-cm FINDINGS: LUNG BASES: The visualized lung bases are unremarkable. LIVER, GALLBLADDER, AND BILIARY TREE: The liver is normal in size, shape and attenuation. No biliary duct dilatation is present. A 1.8 cm low-attenuation lesion in the liver adjacent to the gallbladder (series 2 image 20) represents a cyst by CT Hounsfield units criteria and is stable since the previous ultrasound of 11/20/2015. The gallbladder is unremarkable with no evidence of radiopaque gallstones, gallbladder wall thickening, or obvious pericholecystic inflammatory changes. PANCREAS: Unremarkable. There is normal attenuation of the pancreatic parenchyma. The pancreas is not enlarged. No peripancreatic stranding or fluid. No pancreatic ductal dilatation or pancreatic parenchymal calcifications. SPLEEN: Unremarkable. ADRENAL GLANDS: Unremarkable. KIDNEYS AND URETERS: The kidneys are normal in size, shape and attenuation. There is no evidence of radiopaque renal or ureteric calculi, hydroureteronephrosis or perinephric stranding. Multiple bilateral hypodense renal lesions consistent with cysts are noted. The largest one arising from the upper pole of the left kidney posteriorly measures 8.8 x 11.7 cm in AP and transverse dimension. Calcifications are noted in the portion of the wall of this cyst posteriorly and inferiorly (series 3 image 253). BLADDER: Somewhat dense appearance of the intraluminal contents is likely related to contrast enhanced chest CTA performed on 11/01/2017 at 11:27 PM, representing excreted intravenous contrast. GASTROINTESTINAL TRACT: Mild diverticulosis of the sigmoid colon. Isolated diverticula of the remainder of the colon are seen. No evidence of colonic wall thickening or pericolonic fat stranding. An appendix is normal. The stomach and small bowel are not dilated. ABDOMINAL WALL: There is a fat-containing left inguinal hernia extending into the visualized left scrotum. LYMPH NODES: No evidence of pathologically enlarged lymph nodes. VASCULAR: The aortoiliac vessels are normal in caliber. Mild calcific atherosclerosis of the aortoiliac vessels. PELVIC VISCERA: The prostate is not seen, and there are multiple surgical clips in the deep pelvis, correlate with the previous surgical history. OSSEOUS STRUCTURES: No acute or suspicious osseous abnormality. Mild degenerative changes in the spine. IMPRESSION: 1. No CT evidence of acute pancreatitis. 2. Multiple bilateral renal cysts. The largest exophytic cyst from the upper pole of the left kidney does have partial wall calcifications. 3. Stable hepatic cyst. 4. Colonic diverticulosis without acute diverticulitis. 5. No acute abnormality.
[2017-11-02 22:17] VITALS: BP 118/70
[2017-11-03 06:09] VITALS: BP 138/70
--- NOTE | 2017-11-03 07:27 | PN-Observation ---
Delphine Smith 11/03/17 0726: Observation Note Observation Note _ I have personally examined MAGUE DELVALLE JR. him disposition is uncertain at this time. Before a determination can be made, he requires continued observation for the following reasons [] Echocardiogram and to rule out acute coronary syndrome. Assessment/Plan Assessment: As patient is 82-year-old gentleman with past medical history significant for atrial fibrillation on Eliquis, hypertension, polymyalgia rheumatica, GERD, hypertension, prostate cancer status post resection and colonic polyps came in with chief complaint of chest pain. Patient was kept in observation on telemetry floor to rule out ACS. During his hospital stay we will address following problems Problem #1 chest pain would rule out ACS most likely is dyspepsia/ musculoskeletal in origin. Serial troponin and EKGs were done which came back negative. Cardiology evaluation was requested as patient might need a stress test which could be done as outpatient. Echocardiogram showed no ventricle wall motion abnormalities and normal ejection fraction patient was continued on proton pump inhibitors. History of atrial fibrillation on anticoagulation We will continue his home dose of Eliquis Problem #3 history of hypertension We will continue all his home medications. Problem #4 elevated lipase with questionable pancreatitis Patient was continued the complaining of abdominal discomfort. CT abdomen was negative for any evidence of pancreatitis. He was kept on continuous IV hydration. It's not convincing that he is having acute pancreatitis but we will request GI evaluation for expert opinion. If GI clears him today he would be able to go home. Problem List: 1. Chest pain Subjective Review of Systems Constitutional: Denies: chills, diaphoresis, fever. Cardiovascular: Denies: chest pain, orthopena. Respiratory: Denies: hemoptysis, orthopnea. Gastrointestinal: Reports: abdominal pain. Denies: bowel incontinence, nausea. Genitourinary: Denies: discharge, hematuria. Objective Last 24 Hrs of Vital Signs/I&O Vital Signs Date Time Temp Pulse Resp B/P B/P Pulse O2 O2 Flow FiO2 Mean Ox Delivery Rate 11/03 1510 98.4 66 18 120/70 94 Room Air 11/03 1017 65 138/70 11/03 1017 65 138/70 11/03 0609 98.2 65 20 138/70 96 11/02 2217 98.6 75 18 118/70 93 Room Air 11/02 2049 66 18 138/76 11/02 1630 98.6 66 18 138/76 94 Room Air Intake & Output 11/03 1600 11/03 0800 11/03 0000 Intake Total 350 400 Output Total Balance 350 400 Intake, IV 200 Intake, Oral 350 200 Physical Exam General Appearance: Alert, Oriented X3, Cooperative, No Acute Distress Cardiovascular: Regular Rate, Normal S1, Normal S2 Abdomen: Soft, No Tenderness Neurological: Normal Gait, Normal Tone Extremities: No Clubbing, No Cyanosis, No Edema Serafin Swann MD 11/03/17 1520: Observation Note Observation Note _ I have personally examined MAGUE DELVALLE JR. him disposition is uncertain at this time. Before a determination can be made, he requires continued observation for the following reasons []. Patient seen and examined. Resting comfortably [place] in acute distress. No issues overnight. No events on telemetry monitoring. This morning he denies any chest pain or shortness of breath. Denies any palpitations. Cardiac enzymes have been negative. EKG shows no ischemic changes. Patient however continues complain of abdominal pain. He reports the pain comes on after meals and lasts about an hour. Pain is 5/10 in intensity. on examination he is not in any acute distress. Heart sounds are regular. Lungs are clear bilaterally. Abdomen is mildly distended but soft and nontender with normal bowel sounds. He has no lower extremity edema. Problems: 1. Chest pain; acute coronary syndrome ruled out. 2. Leukocytosis; resolved 3. Abdominal pain; query etiology Plan: -Patient to follow-up with cardiology service as an outpatient for further ischemic workup as indicated. -Begin patient on antispasmodic therapy with Bentyl. -Await evaluation by the gastroenterology service. -If no further inpatient workup recommended patient may be followed up as an outpatient.
--- NOTE | 2017-11-03 07:41 | ECHOCARDIOGRAM REPORT ---
MAGUE DELVALLE Age: 82 : 1935 Gender: M Exam Date: 11/02/2017 10:51 Exam Location: ER Ht (in): 68 Wt (lb): 175 BSA: 1.97 BP: 155 / 79 Ordering Physician: Sukhdev Wyatt MD Referring Physician: Sukhdev Wyatt MD Technologist: Fredrick Goodwin [facility] [place] Room Number: [id number] Indications: Chest Pain Rhythm: Sinus Technical Quality: Fair FINDINGS Left Ventricle Normal global left ventricular size, wall thickness, systolic function with no obvious regional wall motion abnormalities. Right Ventricle Normal right ventricular size and function. Right Atrium Normal right atrial size. Left Atrium Mild to moderate left atrial dilatation. Mitral Valve Mitral valve thickened. Mild mitral regurgitation. Aortic Valve Trileaflet aortic valve. Diffuse thickening (sclerosis) of the aortic valve cusps without reduced excursion. No aortic stenosis. Mild aortic regurgitation. Tricuspid Valve Tricuspid valve not well visualized, grossly normal. Trace tricuspid regurgitation. Pulmonic Valve Structurally normal pulmonic valve. Mild pulmonic regurgitation. Pericardium No pericardial effusion. Great Vessels Aortic root and proximal ascending aorta not well visualized, grossly normal. CONCLUSIONS 1. This was a technically difficult study 2. Moderate aortic sclerosis is present with mild aortic insufficiency 3. Mitral leaflet thickening is present with mild mitral insufficiency and mild to moderate left atrial enlargement. 4. No significant pericardial fluid was detected on the study. 5. The left ventricular chamber size and systolic function appear normal. There are no obvious resting wall motion abnormalities. 6. The right heart structures are grossly normal. Minimal tricuspid insufficiency is present with mild pulmonic insufficiency. The right ventricular systolic pressure was not accurately assessed on this study. Alessandro Amaro M.D. (Electronically Signed) Final Date: 03 November 2017 07:40 MEASUREMENTS (Male / Female) Normal Values 2D ECHO LV Diastolic Diameter PLAX 4.6 cm 4.2 - 5.9 / 3.9 - 5.3 cm LV Systolic Diameter PLAX 3.1 cm 2.1 - 4.0 cm LV Fractional Shortening PLAX 32.6 % 25 - 46 % LV Ejection Fraction 2D Teich 61.0 % IVS Diastolic Thickness 0.9 cm LVPW Diastolic Thickness 0.9 cm LV Relative Wall Thickness 0.4 RV Internal Dim ED PLAX 2.8 cm 1.9 - 3.8 cm LVOT Diameter 1.8 cm Aortic Root Diameter 3.1 cm LA Systolic Diameter LX 4.5 cm 3.0 - 4.0 / 2.7 - 3.8 cm LA Volume 39.0 cm 18 - 58 / 22 - 52 cm Ascending Aorta Diameter 3.1 cm DOPPLER AV Peak Velocity 137.0 cm/s AV Peak Gradient 7.5 mmHg AV Mean Velocity 97.1 cm/s AV Mean Gradient 4.0 mmHg AV Velocity Time Integral 31.4 cm AI Deceleration Flathead 75.9 cm/s AI Peak Velocity 341.0 cm/s AI Pressure Half Time 1317.0 ms AI Peak Gradient 46.5 mmHg LVOT Peak Velocity 67.7 cm/s LVOT Peak Gradient 1.8 mmHg LVOT Mean Velocity 37.2 cm/s LVOT Mean Gradient 1.0 mmHg LVOT Velocity Time Integral 14.8 cm LVOT Stroke Volume 37.7 cm AV Area Cont Eq vti 1.2 cm AV Area Cont Eq pk 1.3 cm MV Peak Velocity 105.0 cm/s MV Peak Gradient 4.4 mmHg MV Mean Velocity 52.5 cm/s MV Mean Gradient 1.0 mmHg Mitral E Point Velocity 63.2 cm/s Mitral A Point Velocity 93.3 cm/s Mitral E to A Ratio 0.7 MV PHT Velocity 92.3 cm/s MV Deceleration Flathead 320.0 cm/s MV Pressure Half Time 86.5 ms MV Area PHT 2.5 cm MV Deceleration Time 197.0 ms MR Peak Velocity 527.0 cm/s MR Peak Gradient 111.1 mmHg PV Peak Velocity 95.1 cm/s PV Peak Gradient 3.6 mmHg PV Mean Velocity 55.3 cm/s PV Mean Gradient 2.0 mmHg PV Velocity Time Integral 19.1 cm LV E' Lateral Velocity 7.3 cm/s Mitral E to LV E' Lateral Ratio 8.6 LV E' Septal Velocity 5.3 cm/s Mitral E to LV E' Septal Ratio 12.0
[2017-11-03] MEDS ORDERED: ASPIRIN EC81 M1 PO (10:22)
--- NOTE | 2017-11-03 10:25 | Patient Discharge Instructions ---
Discharge Instructions General Discharge Information You were seen/treated for: CHEST PAIN MOST LIKELY ACID REFLUX Special Instructions: Please follow up with your PCP in a week of discharge Please follow up with blueprint engineer in 1 week of discharge and schedule stress test as out patient Please follow up with Gastroentrologist in 1-2 weeks of discharge. Diet Recommended Diet: Heart Healthy Activity Additional ACTIVITY Info: as tolerated Acute Coronary Syndrome Inclusion Criteria At DC or during hospital stay patient has or had the following: ACS DIAGNOSIS No Discharge Core Measures Meds if any: Prescribed or Continued at Discharge Meds if any: NOT Prescribed or Continued at Discharge Congestive Heart Failure Inclusion Criteria At DC or during hospital stay patient has or had the following: CHF DIAGNOSIS No Discharge Core Measures Meds if any: Prescribed or Continued at Discharge Meds if any: NOT Prescribed or Continued at Discharge Cerebrovascular accident Inclusion Criteria At DC or during hospital stay patient has or had the following: CVA/TIA Diagnosis No Discharge Core Measures Meds if any: Prescribed or Continued at Discharge Meds if any: NOT Prescribed or Continued at Discharge Venous thromboembolism Inclusion Criteria VTE Diagnosis No VTE Type NONE VTE Confirmed by (Test) NONE Discharge Core Measures - Per Current guidelines, there needs to be overlap - treatment for the first 5 days of Warfarin therapy. - If discharged on Warfarin prior to 5 days of - overlap therapy, the patient will need to be - assessed for post discharge needs including - *Post discharge parental anticoagulation - *Warfarin and/or parental anticoagulation education - *Follow up date to check INR post discharge At least 5 days overlap therapy as Inpatient No Meds if any: Prescribed or Continued at Discharge Note: Overlap Therapy is Warfarin and Anticoagulant Meds if any: NOT Prescribed or Continued at Discharge
[2017-11-03 11:54] LABS: ABSOLUTE BASOPHIL COUNT 0 /CUMM (0.0-0.2); ABSOLUTE EOSINOPHIL COUNT 0.1 /CUMM (0.0-0.7); ABSOLUTE GRANULOCYTE CT 7.4 /CUMM (1.4-6.5); ABSOLUTE LYMPH COUNT 1.2 /CUMM (1.2-3.4); ABSOLUTE MONOCYTE COUNT 0.7 /CUMM (0.10-0.60); BASOPHIL % 0.5 % (0.0-2.0); EOSINOPHIL % 1.1 % (0-5); GRANULOCYTE % 78.3 % (42.2-75.2); HEMATOCRIT 45.2 % (42-52); MEAN CORPUSCULAR HGB 28.6 PG (27.0-31.0); MEAN CORPUSCULAR HGB CONC 32.4 G/DL (33.0-37.0); MEAN CORPUSCULAR VOLUME 88.4 FL (80.0-94.0); PLATELET COUNT 232 /CUMM (130-400); RBC DISTRIBUTION WIDTH 16.2 % (11.5-14.5); RED BLOOD CELL CT 5.11 /CUMM (4.70-6.10); WHITE BLOOD CELL COUNT 9.5 /CUMM (4.8-10.8)
--- NOTE | 2017-11-03 12:44 | PN- Cardiology ---
Subjective Subjective: Doing OK. Still with episodes of post prandial discomfort and persistent lower abdominal discomfort this morning. Objective Vital Signs and I&Os Vital Signs Date Time Temp Pulse Resp B/P B/P Pulse O2 O2 Flow FiO2 Mean Ox Delivery Rate 11/03 1017 65 138/70 11/03 1017 65 138/70 11/03 0609 98.2 65 20 138/70 96 11/02 2217 98.6 75 18 118/70 93 Room Air 11/02 2049 66 18 138/76 11/02 1630 98.6 66 18 138/76 94 Room Air 11/02 1401 97.8 78 20 153/83 96 Room Air Intake & Output 11/03 1600 11/03 0800 11/03 0000 11/02 1600 11/02 0800 11/02 0000 Intake Total 350 400 200 Output Total Balance 350 400 200 Intake, IV 200 Intake, Oral 350 200 200 Patient 175 lb 175 lb Weight Weight Reported by Patient Measurement Method Current Medications: Current Medications Sig/Nelly Start time Last Medication Dose Route Stop Time Status Admin Acetaminophen 0 .STK-MED ONE 11/02 1600 DC PO Acetaminophen 650 MG Q8 11/02 0600 AC 11/03 PO 0650 Apixaban 5 MG BID 11/02 1000 AC 11/03 PO 1017 Aspirin Buffered 81 MG DAILY 11/02 1000 AC 11/03 PO 1017 Hydrochlorothiazide 12.5 MG DAILY 11/02 1000 AC 11/03 PO 1017 Lisinopril 10 MG DAILY 11/02 1000 AC 11/03 PO 1017 Magnesium Oxide 400 MG DAILY 11/02 1000 AC 11/03 PO 1017 Methylprednisolone 4 MG TID 11/02 1000 AC 11/03 PO 1017 Metoprolol Tartrate 25 MG BID 11/02 1000 AC 11/03 PO 1017 Omeprazole 40 MG DAILY AC 11/02 0700 AC 11/03 PO 0650 Sodium Chloride 1,000 ML Q10H 11/02 1630 AC 11/03 IV 0600 Results Last 48 Hrs of Labs/Mics: Laboratory Tests 11/03/17 1100: CBC w Diff NO MAN DIFF REQ, RBC 5.11, MCV 88.4, MCH 28.6, RDW 16.2 H, MPV 9.0, Gran % 78.3 H, Lymphocytes % 12.7 L, Monocytes % 7.4, Eosinophils % 1.1, Basophils % 0.5, Absolute Granulocytes 7.4 H, Absolute Lymphocytes 1.2, Absolute Monocytes 0.7 H, Absolute Eosinophils 0.1, Absolute Basophils 0, PUBS MCHC 32.4 L 11/03/17 0600: Anion Gap 12, Estimated GFR > 60, BUN/Creatinine Ratio 20.0 11/02/17 1135: Troponin I < 0.01 11/02/17 0454: Troponin I < 0.01, Triglycerides 78, Cholesterol 210 H, LDL Cholesterol, Calc 150 H, HDL Cholesterol 45, Cholesterol/HDL Ratio 5 H 11/01/17 2300: Anion Gap 14, Estimated GFR > 60, BUN/Creatinine Ratio 21.8, Glucose 112 H, Calcium 10.2, Magnesium 2.2, Total Bilirubin 0.3, AST 24, ALT 48, Alkaline Phosphatase 65, Troponin I < 0.01, Total Protein 7.2, Albumin 4.5, Globulin 2.7, Albumin/Globulin Ratio 1.7, Lipase 373 H, PT 11.8, INR 1.13, APTT 30, CBC w Diff NO MAN DIFF REQ, RBC 5.38, MCV 89.4, MCH 28.3, RDW 16.3 H, MPV 8.5, Gran % 72.8, Lymphocytes % 14.5 L, Monocytes % 11.3 H, Eosinophils % 1.0, Basophils % 0.4, Absolute Granulocytes 10.3 H, Absolute Lymphocytes 2.0, Absolute Monocytes 1.6 H, Absolute Eosinophils 0.1, Absolute Basophils 0.1, PUBS MCHC 31.7 L Assessment/Plan Assessment/Plan assessment: 1. Chest pain syndrome-at the moment, the symptoms may be GI in nature but the possibility of cardiac symptoms cannot be excluded. The symptoms seem to have improved with nitroglycerin which suggests the possibility of angina, esophageal spasm, etc. Despite this fact, the ECG shows no remarkable abnormalities and serial troponins are negative. 2. Leukocytosis 3. Hypertension 4. History of atrial fibrillation 5. History of PMR on steroids 6. History of reflux disease 7. Right thyroid nodule Recommendations: -CV status stable -GI input pending -Eventual outpatient pharmacologic nuclear stress test.
[2017-11-03 15:10] VITALS: BP 120/70
[2017-11-03] MEDS ORDERED: METOPROLOL TART25 M1 PO (15:26)
--- NOTE | 2017-11-03 17:44 | Cons- Gastroenterology ---
General Information and HPI Consulting Request Date of Consult: 11/03/17 (MD [facility]/GASTROENTEROLOGY) Requested By: Serafin Swann MD Reason for Consult: Abdominal pain Source of Information: patient, family Exam Limitations: poor historian History of Present Illness: The patient presented 2 days ago with the acute onset of upper abdominal pain/ chest pain with radiation to the back, after eating supper. He has had further episodes in the hospital, which appear variable in that although generally with or after eating, they may be upper abdominal or lower. He has had eructation. He seems to have had antecedent lower abdominal discomfort, milder, over an unclear amount of time prior to admission. In addition he has a diagnosis of GERD, manifested by heartburn, for which he has taken a daily PPI with asecond dose as needed. He's had occasional solid food dysphagia, no weight loss, and no nausea or vomiting. He does not use aspirin or NSAIDs. His bowel movements have remained regular, including in the hospital, and without evident blood or melena. He was diagnosed as iron deficient late last year, and placed on iron. There is no family history of ulcer disease, GI malignancy, inflammatory bowel disease. The patient is not 8 mg prednisone per day for PMR, and Eliquis for atrial fibrillation. He does not have claudication or known peripheral vascular /arterial disease although he does have right leg edema. Allergies/Medications Allergies: Coded Allergies: Penicillins (Severe, UNKNOWN REACTION PER PT 02/24/16) Home Med List: Alprazolam 0.25 MG TABLET 1 TAB PO TID PRN ANXIETY (Reported) Apixaban (Eliquis) 5 MG TABLET 1 TAB PO BID A.fib Aspirin (Ecotrin) 81 MG ECT 1 TAB PO DAILY BLOOD THINNER (Reported) Aspirin (Ecotrin*) 81 MG TABLET.DR 81 MG PO DAILY HEART HYLT [employer] Calcium/Vitamin D (Calcium + D) 600 MG/200 IU TAB 1 TAB PO DAILY SUPPLEMENT ( Reported) Cyanocobalamin (Vitamin B-12) 1,000 MCG TABLET 3 TAB PO DAILY SUPPLEMENT ( Reported) LISINOPRIL/HYDROCHLOROTHIAZIDE (Lisinopril-Hctz 10-12.5 MG Tab) 10 MG-12.5 MG TABLET 1 TAB PO DAILY BP (Reported) Magnesium Oxide (Magnesium) 400 MG CAPSULE 1 CAP PO DAILY SUPPLEMENT ( Reported) Methylprednisolone (Medrol) 4 MG TABLET 1 TAB PO TID PMR (Reported) Metoprolol Tartrate 25 MG TABLET 1 TAB PO BID HEART HEALTH (Reported) [place]-3 Fatty Acids (Fish Oil Concentrate) 1,000 MG CAPSULE 1 CAP PO DAILY SUPPLEMENT (Reported) Pantoprazole Sodium 40 MG TABLET.DR 1 TAB PO DAILY AC GI (Reported) Current Medications: Current Medications Sig/Nelly Start time Last Medication Dose Route Stop Time Status Admin Acetaminophen 650 MG .STK-MED ONE 11/03 0649 DC PO 11/03 0650 Acetaminophen 650 MG Q8 11/02 0600 AC 11/03 PO 0650 Apixaban 5 MG BID 11/02 1000 AC 11/03 PO 1017 Aspirin Buffered 81 MG DAILY 11/02 1000 AC 11/03 PO 1017 Dicyclomine HCl 20 MG 4 TIMES/DAY 11/03 1525 AC 11/03 PO 1706 Hydrochlorothiazide 12.5 MG DAILY 11/02 1000 AC 11/03 PO 1017 Lisinopril 10 MG DAILY 11/02 1000 AC 11/03 PO 1017 Magnesium Oxide 400 MG DAILY 11/02 1000 AC 11/03 PO 1017 Methylprednisolone 4 MG BID 11/03 2200 UNVr PO Methylprednisolone 4 MG TID 11/02 1000 DC 11/03 PO 1706 Metoprolol Tartrate 25 MG BID 11/03 2200 AC PO Metoprolol Tartrate 25 MG BID 11/02 1000 DC 11/03 PO 1017 Omeprazole 40 MG DAILY AC 11/02 0700 AC 11/03 PO 0650 Sodium Chloride 1,000 ML Q10H 11/02 1630 DC 11/03 IV 0600 Past History Travel History Traveled to [place] past 21 day No Medical History Blood Transfusion Hx: No Neurological: NONE EENT: HEARING LOSS Cardiovascular: AFIB, hypertension Respiratory: NONE Gastrointestinal: GERD Hepatic: NONE Renal: NONE Musculoskeletal: POLYMYALGIA RHEUMATICA Psychiatric: NONE Endocrine: NONE Blood Disorders: NONE Cancer(s): colon/rectal cancer, prostate cancer 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 FATHER (CVA). SISTER (breast CA). Psychosocial History Where Do You Live? Home Who Do You Live With? spouse Services at Home: None Primary Language: Surinamese Smoking Status: Never Smoked ETOH Use: occasional use Illicit Drug Use: denies illicit drug use Functional Ability ADLs Independent: dressing, eating, toileting, bathing. Ambulation: independent IADLs Independent: shopping, housework, finances, food prep, telephone, transportation , medication admin. ECHO Results (as available) Date of last Echo 02/25/16 EF% 60 Review of Systems Review of Systems Constitutional: Denies: chills, fever, unexplained weight loss. EENTM: Denies: icterus, epistaxis. Cardiovascular: Reports: chest pain, edema. Denies: syncope. Respiratory: Denies: cough, hemoptysis, short of breath. GI: Reports: see HPI. Genitourinary: Denies: dysuria, hematuria. Musculoskeletal: Reports: back pain. Denies: muscle stiffness, neck pain. Skin: Denies: jaundice, lesions. Neurological/Psychological: Denies: cognitive dysfunction, headache. Hematologic/Endocrine: Denies: bruising, bleeding. Exam & Diagnostic Data Vital Signs and I&O Vital Signs Date Time Temp Pulse Resp B/P B/P Pulse O2 O2 Flow FiO2 Mean Ox Delivery Rate 11/03 1510 98.4 66 18 120/70 94 Room Air 11/03 1017 65 138/70 11/03 1017 65 138/70 11/03 0609 98.2 65 20 138/70 96 11/02 2217 98.6 75 18 118/70 93 Room Air 11/02 2049 66 18 138/76 Intake & Output 11/03 1600 11/03 0400 11/02 1600 11/02 0400 11/01 1600 11/01 0400 Intake Total 1550 400 200 Output Total Balance 1550 400 200 Intake, IV 800 200 Intake, Oral 750 200 200 Number 1 Bowel Movements Patient 175 lb 175 lb Weight Weight Reported by Patient Measurement Method Physical Exam: Well-developed, well-nourished, in no apparent distress. Hard of hearing. Alert and oriented. Skin normal. No jaundice. No adenopathy. Sclera anicteric. Oropharynx normal. Neck supple without thyromegaly or mass. Heart regular rhythm. Lungs clear. Abdomen soft and minimally distended, with hyperactive bowel sounds; very mild lower abdominal tenderness, without organomegaly mass or hernia. Extremities without clubbing, cyanosis or edema. Distal pulses intact bilaterally. Results Pertinent Lab Results: Laboratory Tests 11/03 11/03 11/02 11/02 1100 0600 1135 0454 Chemistry Sodium (137 - 145 mmol/L) 143 Potassium (3.5 - 5.1 mmol/L) 3.9 Chloride (98 - 107 mmol/L) 104 Carbon Dioxide (22 - 30 mmol/L) 27 Anion Gap (5 - 16) 12 BUN (9 - 20 mg/dL) 18 Creatinine (0.7 - 1.2 mg/dL) 0.9 Estimated GFR (>60 ml/min) > 60 BUN/Creatinine Ratio (7 - 25 %) 20.0 Troponin I (<0.11 ng/ml) < 0.01 < 0.01 Triglycerides (<150 mg/dL) 78 Cholesterol (< 200 MG/DL) 210 H LDL Cholesterol, Calc (65 - 129 mg/dL) 150 H HDL Cholesterol (40 - 60 mg/dL) 45 Cholesterol/HDL Ratio (0.00 - 4.88 %) 5 H Hematology CBC w Diff NO MAN DIFF REQ WBC (4.8 - 10.8 /CUMM) 9.5 RBC (4.70 - 6.10 /CUMM) 5.11 Hgb (14.0 - 18.0 G/DL) 14.6 Hct (42 - 52 %) 45.2 MCV (80.0 - 94.0 FL) 88.4 MCH (27.0 - 31.0 PG) 28.6 RDW (11.5 - 14.5 %) 16.2 H Plt Count (130 - 400 /CUMM) 232 MPV (7.4 - 10.4 FL) 9.0 Gran % (42.2 - 75.2 %) 78.3 H Lymphocytes % (20.5 - 51.1 %) 12.7 L Monocytes % (1.7 - 9.3 %) 7.4 Eosinophils % (0 - 5 %) 1.1 Basophils % (0.0 - 2.0 %) 0.5 Absolute Granulocytes (1.4 - 6.5 /CUMM) 7.4 H Absolute Lymphocytes (1.2 - 3.4 /CUMM) 1.2 Absolute Monocytes (0.10 - 0.60 /CUMM) 0.7 H Absolute Eosinophils (0.0 - 0.7 /CUMM) 0.1 Absolute Basophils (0.0 - 0.2 /CUMM) 0 PUBS MCHC (33.0 - 37.0 G/DL) 32.4 L 11/01 2300 Chemistry Sodium (137 - 145 mmol/L) 141 Potassium (3.5 - 5.1 mmol/L) 3.7 Chloride (98 - 107 mmol/L) 98 Carbon Dioxide (22 - 30 mmol/L) 29 Anion Gap (5 - 16) 14 BUN (9 - 20 mg/dL) 24 H Creatinine (0.7 - 1.2 mg/dL) 1.1 Estimated GFR (>60 ml/min) > 60 BUN/Creatinine Ratio (7 - 25 %) 21.8 Glucose (65 - 99 mg/dL) 112 H Calcium (8.4 - 10.2 mg/dL) 10.2 Magnesium (1.6 - 2.3 mg/dL) 2.2 Total Bilirubin (0.2 - 1.3 mg/dL) 0.3 AST (17 - 59 U/L) 24 ALT (21 - 72 U/L) 48 Alkaline Phosphatase (< 127 U/L) 65 Troponin I (<0.11 ng/ml) < 0.01 Total Protein (6.3 - 8.2 g/dL) 7.2 Albumin (3.5 - 5.0 g/dL) 4.5 Globulin (1.9 - 4.2 gm/dL) 2.7 Albumin/Globulin Ratio (1.1 - 2.2 %) 1.7 Lipase (23 - 300 U/L) 373 H Coagulation PT (9.4 - 12.5 SEC) 11.8 INR (0.90 - 1.17) 1.13 APTT (25 - 37 SEC) 30 Hematology CBC w Diff NO MAN DIFF REQ WBC (4.8 - 10.8 /CUMM) 14.1 H RBC (4.70 - 6.10 /CUMM) 5.38 Hgb (14.0 - 18.0 G/DL) 15.2 Hct (42 - 52 %) 48.0 MCV (80.0 - 94.0 FL) 89.4 MCH (27.0 - 31.0 PG) 28.3 RDW (11.5 - 14.5 %) 16.3 H Plt Count (130 - 400 /CUMM) 270 MPV (7.4 - 10.4 FL) 8.5 Gran % (42.2 - 75.2 %) 72.8 Lymphocytes % (20.5 - 51.1 %) 14.5 L Monocytes % (1.7 - 9.3 %) 11.3 H Eosinophils % (0 - 5 %) 1.0 Basophils % (0.0 - 2.0 %) 0.4 Absolute Granulocytes (1.4 - 6.5 /CUMM) 10.3 H Absolute Lymphocytes (1.2 - 3.4 /CUMM) 2.0 Absolute Monocytes (0.10 - 0.60 /CUMM) 1.6 H Absolute Eosinophils (0.0 - 0.7 /CUMM) 0.1 Absolute Basophils (0.0 - 0.2 /CUMM) 0.1 PUBS MCHC (33.0 - 37.0 G/DL) 31.7 L Imaging/Other Studies: CT scan of the abdomen and pelvis: IMPRESSION: 1. No CT evidence of acute pancreatitis. 2. Multiple bilateral renal cysts. The largest exophytic cyst from the upper pole of the left kidney does have partial wall calcifications. 3. Stable hepatic cyst. 4. Colonic diverticulosis without acute diverticulitis. 5. No acute abnormality. Assessment/Plan Assessment/Recommendations: 1. Atypical chest pain. This seems to have been more epigastric in location, with radiation to the back. Differential diagnosis, if not cardiac, includes GERD/esophageal spasm, biliary, intestinal angina, intestinal spasm, incomplete small bowel obstruction, exacerbation of underlying intestinal inflammatory or vascular disease (although negative CT scan). The degree of lipase elevation is minimal and not specific for pancreatitis. In the hospital, the pain has been variable location (indeed at this time more lower abdomen), and postprandial, and they may be two processes going on, a more acute superimposed on a chronic intestinal pattern. 2. Iron deficiency anemia. The patient has had regular colonoscopies performed by colorectal surgery, because of history of adenomatous polyps. With GERD, dysphagia, and postprandial pain, must rule out esophagitis, upper GI neoplasm, peptic ulcer disease, etc. The differential includes small bowel processes as well. Recommendations * Dicyclomine 10 mg by mouth half hour before meals and at bedtime * Increase PPI to twice a day * Sucralfate 1 g suspension 4 times a day (prior to meals, bedtime) * Ultrasound of the abdomen with attention to gallbladder/bile ducts, in the morning * Will need an EGD * Possible eventual CTA of the abdomen Copies To: Yonas Regalado MD; Sondra [facility],W Tayo Consult Acknowledgment - Thank you for your consult request.
[2017-11-03 22:00] VITALS: BP 134/88
[2017-11-04 07:00] VITALS: BP 132/82
--- NOTE | 2017-11-04 08:53 | PN-Observation ---
Assessment/Plan Assessment: As patient is 82-year-old gentleman with past medical history significant for atrial fibrillation on Eliquis, hypertension, polymyalgia rheumatica, GERD, hypertension, prostate cancer status post resection and colonic polyps came in with chief complaint of chest pain. Patient was kept in observation on telemetry floor to rule out ACS. During his hospital stay we will address following problems Problem #1 chest pain would rule out ACS most likely is dyspepsia/ musculoskeletal in origin. Serial troponin and EKGs were done which came back negative. Cardiology evaluation was requested as patient might need a stress test which could be done as outpatient. Echocardiogram showed no ventricle wall motion abnormalities and normal ejection fraction patient was continued on proton pump inhibitors. History of atrial fibrillation on anticoagulation We will continue his home dose of Eliquis Problem #3 history of hypertension We will continue all his home medications. Problem #4 elevated lipase with questionable pancreatitis Patient reported diffuse abdominal pain, ultrasound was obtained which that didn 't show any acute changes. GI recommended giving the sucralfate and bentyl before the meals, if patient responded well he will be discharged in the morning. Patient was continued the complaining of abdominal discomfort. CT abdomen was negative for any evidence of pancreatitis. He was kept on continuous IV hydration. It's not convincing that he is having acute pancreatitis but we will request GI evaluation for expert opinion. If GI clears him today he would be able to go home. Problem List: 1. Abdominal pain 2. Chest pain Subjective Follow-up For: Chest pain Abdominal pain Subjective: Patient was seen and examined this morning, reported diffuse abdominal pain after he ate lunch. Waiting for GI recommendation. Vital signs are stable, no nausea vomiting or diarrhea. Review of Systems Constitutional: Reports: see HPI. Objective Last 24 Hrs of Vital Signs/I&O Vital Signs Date Time Temp Pulse Resp B/P B/P Pulse O2 O2 Flow FiO2 Mean Ox Delivery Rate 11/04 1400 97.6 62 20 112/66 94 Room Air 11/04 0942 68 134/80 11/04 0941 68 138/80 11/04 0700 97.5 69 18 132/82 96 11/03 2200 98.3 106 18 134/88 95 Room Air 11/03 2149 106 134/88 Intake & Output 11/04 1600 11/04 0800 11/04 0000 Intake Total 360 Output Total Balance 360 Intake, Oral 360 Physical Exam General Appearance: Alert, Oriented X3, Cooperative, No Acute Distress Skin: No Rashes Cardiovascular: Regular Rate, Normal S1, Normal S2, No Murmurs Lungs: Clear to Auscultation, Normal Air Movement Abdomen: Normal Bowel Sounds, Soft, No Tenderness Neurological: Normal Speech, Strength at 5/5 X4 Ext, Normal Tone, Sensation Intact, Reflexes 2+ Extremities: No Clubbing, No Cyanosis, No Edema, Normal Pulses
[2017-11-04 14:00] VITALS: BP 112/66
--- NOTE | 2017-11-04 14:52 | PN- Att Addend ---
Attending Addendum Attending Brief Note I have personally examined MAGUE DELVALLE JR., agree with the assessment and plan and plan of the house staff - detailed discussion with at bedside. Patient seen and examined. Resting comfortably in bed without any acute distress. No issues overnight. No events on telemetry monitoring. This morning he denies any chest pain or shortness of breath. Denies any palpitations. Cardiac enzymes have been negative. EKG shows no ischemic changes. Patient however continues complain of abdominal pain, that is worse after eating. Maximum pain intensity of about 6/10 On examination he is not in any acute distress, denies chest pain, lightheadedness, dizziness. Heart sounds are regular. Lungs are clear bilaterally. Abdomen is mildly distended, firm, no guarding or rigidiy with normal bowel sounds. He has no lower extremity edema. Has been having normal bowel movements - 3 yesterday and 1 today. Problems: 1. Chest pain; acute coronary syndrome ruled out. 2. Leukocytosis; resolved 3. Lower Abdominal post prandial pain Plan: -Patient to follow-up with cardiology service as an outpatient for further ischemic workup as indicated. -Begin patient on antispasmodic therapy with Bentyl. - GI recommend doing an abdominal USG - awaiting results - Will obtain lactic acid levels and consider CT Angio of the abdomen pelvis for concerns of bowel ischemia - Will discuss with GI - They mention considering EGD -If no further inpatient workup recommended patient may be followed up as an outpatient. Patient is still in observation status - depending on the GI recommendations - may be admitted as an inpatient.
--- NOTE | 2017-11-04 15:50 | ULTRASOUND REPORT ---
EXAMINATION: US ABDOMEN COMPLETE CLINICAL INFORMATION: Small-bowel disease. Upper GI neoplasm. COMPARISON: CT of the abdomen and pelvis done on 11/02/2017. TECHNIQUE: Real-time imaging of the abdominal viscera. FINDINGS: Evaluation is technically limited due to patient's body habitus and overlying bowel gas. PANCREAS: Nonvisualized due to overlying bowel gas, accordingly not evaluated. Please refer to the prior CT report for full details. ABDOMINAL AORTA: The proximal segment is normal in caliber. INFERIOR VENA CAVA: Visualized portions are normal. LIVER: Suboptimally visualized. The visualized part of the liver shows diffuse heterogeneous abnormal increased echotexture consistent with likely hepatic steatosis. Previous CT-detected hypodensity near the gallbladder bed is not well visualized. However, when correlating with the prior CT study, there appears to be an area of hypoechogenicity noted within the right lobe, measures 2.0 cm at its maximum dimension, may represent a cyst. GALLBLADDER: Normal. The gallbladder is physiologically distended without evidence of stones, sludge, polyps, wall thickening or pericholecystic fluid. COMMON BILE DUCT: Normal in caliber measuring 0.3 cm in diameter. RIGHT KIDNEY: There is a simple-appearing 7.7 cm unilocular cyst present at mid posterior cortex and another smaller 4.7 cm cyst at inferolateral cortex, similar to prior CT study. No hydronephrosis or renal calculi. The kidney measures 10.0 cm in maximum dimension. LEFT KIDNEY: Concordant with prior CT study, there is an 11 cm maximum dimension unilocular simple-appearing cyst present at the superior pole. There is another 5.7 cm maximum dimension minimally complicated cyst noted at the inferolateral cortex and a smaller 2.7 cm cyst at superior posterior cortex. No hydronephrosis or renal calculi. The kidney measures 11.0 cm in maximum dimension. SPLEEN: Normal. The spleen measures 10 cm in maximum dimension. FREE FLUID: None. IMPRESSION: The sonographic findings appear to be concordant with prior CT-detected abnormality seen on 11/02/2017. Sonographic evaluation is slightly technically limited due to patient's body habitus and overlying bowel gas.
--- NOTE | 2017-11-04 17:35 | PN- Gastroenterology ---
Assessment/Plan Assessment/Recommendations: 1. Atypical chest pain. Normal ultrasound. No recurrent chest pain since yesterday. Still with postprandial lower abdominal pain, relieved with an anticholinergic antispasmodic. 2. Iron deficiency anemia. The patient has had regular colonoscopies performed by colorectal surgery, because of history of adenomatous polyps. With GERD, dysphagia, and postprandial pain, must rule out esophagitis, upper GI neoplasm, peptic ulcer disease, etc. The differential includes small bowel processes as well. Recommendations * Dicyclomine 10 mg by mouth half hour before meals and at bedtime. Give dicyclomine prior to supper tonight, and if no postprandial pain, can be discharged. He will follow up in my office. * PPI to twice a day * Sucralfate 1 g suspension 4 times a day (prior to meals, bedtime) * Outpatient EGD * Possible eventual CTA of the abdomen Subjective Subjective: No chest pain, nausea, vomiting. Had lower abdominal pain after lunch, apparently diminished with dicyclomine. Objective Vital Signs and I&Os Vital Signs Date Time Temp Pulse Resp B/P B/P Pulse O2 O2 Flow FiO2 Mean Ox Delivery Rate 11/04 1400 97.6 62 20 112/66 94 Room Air 11/04 0942 68 134/80 11/04 0941 68 138/80 11/04 0700 97.5 69 18 132/82 96 11/03 2200 98.3 106 18 134/88 95 Room Air 11/03 2149 106 134/88 Intake & Output 11/04 1600 11/04 0400 11/03 1600 11/03 0400 11/02 1600 11/02 0400 Intake Total 360 1550 400 200 Output Total Balance 360 1550 400 200 Intake, IV 800 200 Intake, Oral 360 750 200 200 Number 1 Bowel Movements Patient 175 lb 175 lb Weight Weight Reported by Patient Measurement Method Physical Exam: Sclera anicteric. Abdomen mildly distended, normal bowel sounds, mild diffuse lower abdominal tenderness. Current Medications: Current Medications Sig/Nelly Start time Last Medication Dose Route Stop Time Status Admin Acetaminophen 650 MG Q8 11/02 0600 AC 11/03 PO 0650 Apixaban 5 MG BID 11/02 1000 AC 11/04 PO 0940 Aspirin Buffered 81 MG DAILY 11/02 1000 AC 11/04 PO 0940 Dicyclomine HCl 20 MG AC & AT BEDTIME 11/03 2200 AC 11/04 PO 1706 Dicyclomine HCl 20 MG 4 TIMES/DAY 11/03 1525 DC 11/03 PO 1706 Hydrochlorothiazide 12.5 MG DAILY 11/02 1000 AC 11/04 PO 0940 Lisinopril 10 MG DAILY 11/02 1000 AC 11/04 PO 0942 Magnesium Oxide 400 MG DAILY 11/02 1000 AC 11/04 PO 0942 Methylprednisolone 4 MG BID 11/03 2200 AC 11/04 PO 0942 Metoprolol Tartrate 25 MG BID 11/03 2199 AC 11/04 PO 0941 Omeprazole 40 MG BID 11/03 2199 AC 11/04 PO 0942 Omeprazole 40 MG DAILY AC 11/02 0700 DC 11/03 PO 0650 Sucralfate 1 GM 4 TIMES/DAY 11/03 2199 AC 11/04 PO 1706 Results Pertinent Lab Results: Laboratory Tests 11/04 11/03 11/03 11/02 1535 1100 0600 1135 Chemistry Sodium (137 - 145 mmol/L) 143 Potassium (3.5 - 5.1 mmol/L) 3.9 Chloride (98 - 107 mmol/L) 104 Carbon Dioxide (22 - 30 mmol/L) 27 Anion Gap (5 - 16) 12 BUN (9 - 20 mg/dL) 18 Creatinine (0.7 - 1.2 mg/dL) 0.9 Estimated GFR (>60 ml/min) > 60 BUN/Creatinine Ratio (7 - 25 %) 20.0 Lactic Acid (0.7 - 2.1 mmol/L) 1.6 Troponin I (<0.11 ng/ml) < 0.01 Hematology CBC w Diff NO MAN DIFF REQ WBC (4.8 - 10.8 /CUMM) 9.5 RBC (4.70 - 6.10 /CUMM) 5.11 Hgb (14.0 - 18.0 G/DL) 14.6 Hct (42 - 52 %) 45.2 MCV (80.0 - 94.0 FL) 88.4 MCH (27.0 - 31.0 PG) 28.6 RDW (11.5 - 14.5 %) 16.2 H Plt Count (130 - 400 /CUMM) 232 MPV (7.4 - 10.4 FL) 9.0 Gran % (42.2 - 75.2 %) 78.3 H Lymphocytes % (20.5 - 51.1 %) 12.7 L Monocytes % (1.7 - 9.3 %) 7.4 Eosinophils % (0 - 5 %) 1.1 Basophils % (0.0 - 2.0 %) 0.5 Absolute Granulocytes (1.4 - 6.5 /CUMM) 7.4 H Absolute Lymphocytes (1.2 - 3.4 /CUMM) 1.2 Absolute Monocytes (0.10 - 0.60 /CUMM) 0.7 H Absolute Eosinophils (0.0 - 0.7 /CUMM) 0.1 Absolute Basophils (0.0 - 0.2 /CUMM) 0 PUBS MCHC (33.0 - 37.0 G/DL) 32.4 L 11/02 11/01 0454 2300 Chemistry Sodium (137 - 145 mmol/L) 141 Potassium (3.5 - 5.1 mmol/L) 3.7 Chloride (98 - 107 mmol/L) 98 Carbon Dioxide (22 - 30 mmol/L) 29 Anion Gap (5 - 16) 14 BUN (9 - 20 mg/dL) 24 H Creatinine (0.7 - 1.2 mg/dL) 1.1 Estimated GFR (>60 ml/min) > 60 BUN/Creatinine Ratio (7 - 25 %) 21.8 Glucose (65 - 99 mg/dL) 112 H Calcium (8.4 - 10.2 mg/dL) 10.2 Magnesium (1.6 - 2.3 mg/dL) 2.2 Total Bilirubin (0.2 - 1.3 mg/dL) 0.3 AST (17 - 59 U/L) 24 ALT (21 - 72 U/L) 48 Alkaline Phosphatase (< 127 U/L) 65 Troponin I (<0.11 ng/ml) < 0.01 < 0.01 Total Protein (6.3 - 8.2 g/dL) 7.2 Albumin (3.5 - 5.0 g/dL) 4.5 Globulin (1.9 - 4.2 gm/dL) 2.7 Albumin/Globulin Ratio (1.1 - 2.2 %) 1.7 Triglycerides (<150 mg/dL) 78 Cholesterol (< 200 MG/DL) 210 H LDL Cholesterol, Calc (65 - 129 mg/dL) 150 H HDL Cholesterol (40 - 60 mg/dL) 45 Cholesterol/HDL Ratio (0.00 - 4.88 %) 5 H Lipase (23 - 300 U/L) 373 H Coagulation PT (9.4 - 12.5 SEC) 11.8 INR (0.90 - 1.17) 1.13 APTT (25 - 37 SEC) 30 Hematology CBC w Diff NO MAN DIFF REQ WBC (4.8 - 10.8 /CUMM) 14.1 H RBC (4.70 - 6.10 /CUMM) 5.38 Hgb (14.0 - 18.0 G/DL) 15.2 Hct (42 - 52 %) 48.0 MCV (80.0 - 94.0 FL) 89.4 MCH (27.0 - 31.0 PG) 28.3 RDW (11.5 - 14.5 %) 16.3 H Plt Count (130 - 400 /CUMM) 270 MPV (7.4 - 10.4 FL) 8.5 Gran % (42.2 - 75.2 %) 72.8 Lymphocytes % (20.5 - 51.1 %) 14.5 L Monocytes % (1.7 - 9.3 %) 11.3 H Eosinophils % (0 - 5 %) 1.0 Basophils % (0.0 - 2.0 %) 0.4 Absolute Granulocytes (1.4 - 6.5 /CUMM) 10.3 H Absolute Lymphocytes (1.2 - 3.4 /CUMM) 2.0 Absolute Monocytes (0.10 - 0.60 /CUMM) 1.6 H Absolute Eosinophils (0.0 - 0.7 /CUMM) 0.1 Absolute Basophils (0.0 - 0.2 /CUMM) 0.1 PUBS MCHC (33.0 - 37.0 G/DL) 31.7 L Imaging/Other Studies: Ultrasound: Normal gallbladder and bile ducts
[2017-11-05 09:00] VITALS: BP 124/82
--- NOTE | 2017-11-05 13:46 | PN-Observation ---
Observation Note Observation Note _ I have personally examined MAGUE DELVALLE JR. him disposition is uncertain at this time. Before a determination can be made, he requires continued observation for the following reasons [to rule out acute coronary syndrome.]. Assessment/Plan Assessment: As patient is 82-year-old gentleman with past medical history significant for atrial fibrillation on Eliquis, hypertension, polymyalgia rheumatica, GERD, hypertension, prostate cancer status post resection and colonic polyps came in with chief complaint of chest pain. Patient was kept in observation on telemetry floor to rule out ACS. Assessment and plan * DC telemetry monitoring. * Plan for discharge tomorrow. Chest pain, ruled out acute coronary syndrome, possible GERD * Serial troponins and EKGs were negative * According to the scraper tender, patient may need nuclear stress test as an outpatient * Echocardiogram - Normal global left ventricular size, wall thickness, systolicfunction with no obvious regional wall motion abnormalities. * We will continue Omeprazole 40MG bid. History of atrial fibrillation on Eliquis * Continue Eliquis as before Chronic medical issues -hypertension * We will continue all his home medications. Elevated lipase with questionable pancreatitis -incidental pancreatic tail mass * Patient reported diffuse abdominal pain, ultrasound was obtained which that didn't show any acute changes. GI recommended giving the sucralfate and bentyl before the meals.Patient was continued the complaining of abdominal discomfort. CT abdomen was negative for any evidence of pancreatitis. CTA was done today which showed 0.8 cm oval enhancing mass in the tail the pancreas. 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 Further evaluation to exclude malignancy is recommended. Endoscopic ultrasound is suggested. Discussed with Dr. Wiley over the phone, he advised for follow-up with the patient tomorrow. Problem List: 1. Abdominal pain 2. Chest pain 3. ACS (acute coronary syndrome) 4. Atrial fibrillation DVT/Prophylaxis: mechanical, pharmacological Subjective Follow-up For: Follow-up abdominal pain/chest pain Complaints: complaining of diffuse pain in the belly Tele-Events Since Last Visit: No overnight events Subjective: Patient is seen and examined at the bedside. She was still complaining of pain in his belly. It was decided to do CT abdomen with contrast to rule out any vascular pathology, including ischemic colitis. Review of Systems Constitutional: Reports: no symptoms. Gastrointestinal: Reports: abdominal pain. Objective Last 24 Hrs of Vital Signs/I&O Vital Signs Date Time Temp Pulse Resp B/P B/P Pulse O2 O2 Flow FiO2 Mean Ox Delivery Rate 11/05 1708 98.1 73 18 122/70 96 Room Air 11/05 1400 97.6 69 20 140/70 95 11/05 0912 77 124/64 11/05 0912 77 124/64 11/05 0900 98.2 62 18 124/82 94 Room Air 11/04 2254 97.8 75 18 95 11/04 2101 91 124/78 Intake & Output 11/05 1600 11/05 0800 11/05 0000 Intake Total 480 Output Total Balance 480 Intake, Oral 480 Physical Exam General Appearance: Alert, Oriented X3, Cooperative, No Acute Distress Cardiovascular: Normal S1, Normal S2 Lungs: Clear to Auscultation, Normal Air Movement Abdomen: Soft, mild tender Extremities: No Clubbing, No Cyanosis, No Edema
--- NOTE | 2017-11-05 13:55 | CT SCAN REPORT ---
EXAMINATION: CT ANGIOGRAM ABDOMEN, PELVIS CLINICAL INFORMATION: This is an 82-year-old male with possible intestinal ischemia. History of atrial fibrillation. Pain after meals. Interventional Radiologist: Andrés Pa M.D., F.S.I.R., F.A.C.R. COMPARISON: Comparison is made to a previous study dated 11/02/2017. Multiple 0.6 mm thick axial sections were obtained through the abdomen, pelvis. This was performed with intravenous contrast injection of 90 cc of Optiray 350 contrast. 3-D reconstructions with MIPS reconstructions were obtained and reviewed at a dedicated workstation. Images were evaluated on an independent dedicated 3-D workstation and 3-D images were reconstructed with concurrent radiologist supervision and subsequently interpreted. DLP: 787 mGy-cm. FINDINGS: VASCULAR: Mild atherosclerotic disease is seen in the descending thoracic aorta without evidence of aneurysm formation. There is scattered atherosclerotic plaque within the renal arteries and the abdominal aorta consistent with atherosclerotic disease. There is no abdominal aortic aneurysm. The 3 mesenteric arteries appear patent. There is a replaced right hepatic artery, a normal variant. No filling defects are demonstrated. The mesenteric venous system could not be evaluated because no delayed images were obtained. FINDINGS: LUNG BASES: Again noted are the linear densities in the lower lung silvestre. This could represent atelectasis versus scarring. Follow-up with a chest x-ray to demonstrate clearing with 1 one month is recommended. There is a calcified granuloma in the right lower lobe. LIVER, GALLBLADDER, AND BILIARY TREE: The liver is normal in size, shape. There may be diffuse decreased density to the liver which may represent hepatic steatosis. No biliary duct dilatation is present. A 1.8 cm low-attenuation lesion in the liver adjacent to the gallbladder (series 2 image 20) represents a cyst by CT Hounsfield units criteria and is stable since the previous ultrasound of 11/20/2015. The gallbladder is unremarkable with no evidence of radiopaque gallstones, gallbladder wall thickening, or obvious pericholecystic inflammatory changes. PANCREAS: There is a 0.8 x 0.7 cm oval, enhancing mass within the tail the pancreas. There is no pancreatic ductal dilatation. 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 Endoscopic ultrasound is recommended. SPLEEN: Unremarkable. ADRENAL GLANDS: Unremarkable. KIDNEYS AND URETERS: The kidneys are normal in size, shape and attenuation. There is no evidence of radiopaque renal or ureteric calculi, hydroureteronephrosis or perinephric stranding. Multiple bilateral hypodense renal lesions consistent with cysts are noted. The largest one arising from the upper pole of the left kidney posteriorly measures 8.8 x 11.7 cm in AP and transverse dimension. Calcifications are noted in the portion of the wall of this cyst posteriorly and inferiorly BLADDER: Unremarkable. GASTROINTESTINAL TRACT: Mild diverticulosis of the sigmoid colon. Isolated diverticula of the remainder of the colon are seen. No evidence of colonic wall thickening or pericolonic fat stranding. An appendix is normal. The stomach and small bowel are not dilated. ABDOMINAL WALL: There is a fat-containing left inguinal hernia extending into the visualized left scrotum. LYMPH NODES: No evidence of pathologically enlarged lymph nodes. PELVIC VISCERA: The prostate is not seen, and there are multiple surgical clips in the deep pelvis, correlate with the previous surgical history. OSSEOUS STRUCTURES: No acute or suspicious osseous abnormality. Mild degenerative changes in the spine. IMPRESSION: 1. There is a 0.8 cm oval enhancing mass in the tail the pancreas. 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 Further evaluation to exclude malignancy is recommended. Endoscopic ultrasound is suggested. 2. No mesenteric arterial stenosis is seen. 3. No inflammation of the bowel is seen. There is diverticulosis without evidence of diverticulitis.
[2017-11-05 14:00] VITALS: BP 140/70
--- NOTE | 2017-11-05 14:11 | PN- Att Addend ---
Attending Addendum Attending Brief Note I have personally examined MAGUE DELVALLE JR., agree with the assessment and plan and plan of the house staff - detailed discussion with at bedside. Patient seen and examined. Resting comfortably in bed in no acute distress. No issues overnight. No events on telemetry monitoring. This morning he denies any chest pain or shortness of breath. Denies any palpitations. Cardiac enzymes have been negative. EKG shows no ischemic changes. Patient however continues complain of abdominal pain, that is worse after eating. Maximum pain intensity of about 6/10. He was tried on bentyl before eating and that was not helpful. He is unable to complete his food due to pain. On examination he is not in any acute distress, denies chest pain, lightheadedness, dizziness. Heart sounds are regular. Lungs are clear bilaterally. Abdomen is mildly distended, firm, no guarding or rigidiy with normal bowel sounds. He has no lower extremity edema. Has been having normal bowel movements - 1 last night. Problems: 1. Chest pain; acute coronary syndrome ruled out. 2. Leukocytosis; resolved 3. Lower Abdominal post prandial pain - ?Mesenteric ischemia vs diverticulitis/ diverticulosis Plan: -Patient to follow-up with cardiology service as an outpatient for further ischemic workup as indicated. -On antispasmodic therapy with Bentyl. - GI recommend doing an abdominal USG - negative for acute symptoms - CT Angio of the abdomen pelvis negative for mesenteric ischemia, however incidental finding of the mass of the tail of the pancreas visualized -Will discuss with GI on further plan - Change to full admit - Can be downgraded to Gen Medicine
[2017-11-05 17:08] VITALS: BP 122/70
[2017-11-05 22:24] VITALS: BP 124/76
[2017-11-06 06:52] VITALS: BP 128/76
--- NOTE | 2017-11-06 07:51 | PN- Housestaff ---
Delphine Smith 11/06/17 0751: Subjective Follow-up For: Epigastric/abdominal pain Chest pain, ACS ruled out Complaints: no complaints Subjective: Patient was seen and examined this morning. He was lying comfortably on bed and admits that he is feeling much better than before. He has slight epigastric discomfort but he feels his abdomen is much softer. He remained afebrile and hemodynamically stable. He had slightly dark bowel movement this morning which was guaiac positive. Review of Systems Constitutional: Denies: malaise. Cardiovascular: Denies: edema, orthopena, palpitations. Respiratory: Denies: hemoptysis, short of breath. Gastrointestinal: Reports: abdominal pain. Denies: diarrhea, distention. Genitourinary: Denies: dysuria. Musculoskeletal: Denies: joint pain, joint swelling. Objective Last 24 Hrs of Vital Signs/I&O Vital Signs Date Time Temp Pulse Resp B/P B/P Pulse O2 O2 Flow FiO2 Mean Ox Delivery Rate 11/06 0935 60 128/76 11/06 0935 60 128/76 11/06 0652 98.3 61 20 128/76 93 Room Air 11/05 2224 98.7 78 18 124/76 94 Room Air 11/05 2011 73 122/70 11/05 1708 98.1 73 18 122/70 96 Room Air 11/05 1400 97.6 69 20 140/70 95 Intake & Output 11/06 1600 11/06 0800 11/06 0000 Intake Total 360 360 Output Total Balance 360 360 Intake, Oral 360 360 Physical Exam General Appearance: Alert, Oriented X3, Cooperative, No Acute Distress Cardiovascular: Regular Rate, Normal S1, Normal S2, No Murmurs Lungs: Normal Air Movement Abdomen: Soft, No Tenderness, No Hepatospenomegaly Current Medications: Current Medications Sig/Nelly Start time Last Medication Dose Route Stop Time Status Admin Acetaminophen 650 MG Q8 11/02 0600 AC 11/03 PO 0650 Apixaban 5 MG BID 11/02 1000 AC 11/06 PO 0934 Aspirin Buffered 81 MG DAILY 11/02 1000 AC 11/06 PO 0934 Dicyclomine HCl 20 MG AC & AT BEDTIME 11/03 2200 AC 11/06 PO 1251 Hydrochlorothiazide 12.5 MG DAILY 11/02 1000 AC 11/06 PO 0934 Lisinopril 10 MG DAILY 11/02 1000 AC 11/06 PO 0935 Magnesium Oxide 400 MG DAILY 11/02 1000 AC 11/06 PO 0935 Methylprednisolone 4 MG DAILY 11/07 1000 AC PO Methylprednisolone 4 MG BID 11/03 2199 DC 11/06 PO 0934 Metoprolol Tartrate 25 MG BID 11/03 2199 AC 11/06 PO 0935 Omeprazole 40 MG BID 11/03 2199 AC 11/06 PO 0935 Sucralfate 1 GM 4 TIMES/DAY 11/03 2199 AC 11/06 PO 0811 Assessment/Plan Assessment: As patient is 82-year-old gentleman with past medical history significant for atrial fibrillation on Eliquis, hypertension, polymyalgia rheumatica, GERD, hypertension, prostate cancer status post resection and colonic polyps came in with chief complaint of chest pain. Patient was kept in observation on telemetry floor to rule out ACS Chest pain, ruled out acute coronary syndrome, possible GERD * Serial troponins and EKGs were negative * According to the client executive, patient may need nuclear stress test as an outpatient * Echocardiogram - Normal global left ventricular size, wall thickness, systolicfunction with no obvious regional wall motion abnormalities. * We will continue Omeprazole 40MG bid. History of atrial fibrillation on Eliquis * Continue Eliquis as before Chronic medical issues -hypertension * We will continue all his home medications. Elevated lipase with questionable pancreatitis -incidental pancreatic tail mass * Patient reported diffuse abdominal pain, ultrasound was obtained which that didn't show any acute changes. GI recommended giving the sucralfate and bentyl before the meals.Patient was continued the complaining of abdominal discomfort. CT abdomen was negative for any evidence of pancreatitis. CTA was done today which showed 0.8 cm oval enhancing mass in the tail the pancreas. 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 Further evaluation to exclude malignancy is recommended. Endoscopic ultrasound is suggested. * Patient was discussed with Dr. Renny Wiley on phone and he is okay to discharge patient home with instruction to follow up with it him in his office next week. Patient would need EGD for further evaluation/endoscopic ultrasound for further evaluation of his pancreatic mass but at this point it doesn't warrant hospital stay and he is safe to be discharged on symptomatic treatment of his slight abdominal discomfort with instruction to follow-up with Dr. Wiley as outpatient. * Of note patient was found to be guaiac-positive this morning. He is on Eliquis as well as on aspirin. As ACS was ruled out we will add hold his aspirin on discharge till follow-up with cardiology and have his outpatient stress test. Problem List: 1. Abdominal pain 2. Chest pain Pain Ratin Pain Location: Not applicable Pain Goal: Remain pain free Pain Plan: Proton pump inhibitors Tomorrow's Labs & Rationales: None Joslyn Marin MD 11/06/17 1137: Attending MD Review Statement Attending Statement Attending MD Statement: examined this patient, discuss w/resident/PA/DEPARTMENT STORE MANAGER, agreed w/resident/PA/DEPARTMENT STORE MANAGER, discussed with family, reviewed EMR data (avail), discussed with nursing, reviewed images, amended to note Attending Assessment/Plan: Patient seen and examined, did complain of left-sided abdominal pain this morning but currently it is better. Patient was transferred from telemetry. Vital Signs Date Time Temp Pulse Resp B/P B/P Pulse O2 O2 Flow FiO2 Mean Ox Delivery Rate 11/06 0935 60 128/76 11/06 0935 60 128/76 11/06 0652 98.3 61 20 128/76 93 Room Air 11/05 2224 98.7 78 18 124/76 94 Room Air 11/05 2010 73 122/70 11/05 1708 98.1 73 18 122/70 96 Room Air 11/05 1400 97.6 69 20 140/70 95 on exam; aox3, nad. hard of hearing. cv; s1,s2 rrr resp; clear abd; soft, nt, bs+ ext; no edema. A/P; 82 y/o M with pmh sig for atrial fibrillation on Eliquis and metoprolol, polymyalgia rheumatica, GERD, hypertension, prostate cancer status post surgery and consists versus precancerous colon polyp status post polypectomy admitted originally with chest pain. Cardiac etiology ruled out. Outpatient further follow-up recommended by cardiology. During the hospital course, patient also had this postprandial abdominal pain. Bentyl was added per GI recommendations. He had a CTA of abdomen and pelvis done yesterday which is consistent with the following findings. IMPRESSION: 1. There is a 0.8 cm oval enhancing mass in the tail the pancreas. 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 Further evaluation to exclude malignancy is recommended. Endoscopic ultrasound is suggested. 2. No mesenteric arterial stenosis is seen. 3. No inflammation of the bowel is seen. There is diverticulosis without evidence of diverticulitis. Please discuss with GI about this finding off from oval enhancing mass in the tail of pancreas with the question of islet cell tumor. Currently patient is treated with PPI, sucralfate as well as Bentyl. He might need an endoscopy, ultrasound but will discuss with GI. Continue the rest of the medications. Patient was encouraged to ambulate. DVT prophylaxis: Eliquuche.
[2017-11-06] MEDS ORDERED: SUCRALFATE1 GM/10 M1 PO (12:18)
[2017-11-06] MEDS ORDERED: OMEPRAZOLE20 M2 PO (12:18)
[2017-11-06] MEDS ORDERED: BENTYL10 M1 PO (12:18)
--- NOTE | 2017-11-06 12:20 | Patient Discharge Instructions ---
Discharge Instructions General Discharge Information You were seen/treated for: CHEST PAIN Abdominal pain/acid reflux Pancreatic mass Special Instructions: Please follow up with your PCP in a week of discharge Please follow up with livestock farm manager in 1 week of discharge and schedule stress test as out patient Please follow up with Gastroentrologist Dr. Wiley in 1 week of discharge for further investigation of pancreatic mass and scheduling EGD Diet Recommended Diet: Heart Healthy Activity Additional ACTIVITY Info: as tolerated Acute Coronary Syndrome Inclusion Criteria At DC or during hospital stay patient has or had the following: ACS DIAGNOSIS No Discharge Core Measures Meds if any: Prescribed or Continued at Discharge Meds if any: NOT Prescribed or Continued at Discharge Congestive Heart Failure Inclusion Criteria At DC or during hospital stay patient has or had the following: CHF DIAGNOSIS No Discharge Core Measures Meds if any: Prescribed or Continued at Discharge Meds if any: NOT Prescribed or Continued at Discharge Cerebrovascular accident Inclusion Criteria At DC or during hospital stay patient has or had the following: CVA/TIA Diagnosis No Discharge Core Measures Meds if any: Prescribed or Continued at Discharge Meds if any: NOT Prescribed or Continued at Discharge Venous thromboembolism Inclusion Criteria VTE Diagnosis No VTE Type NONE VTE Confirmed by (Test) NONE Discharge Core Measures - Per Current guidelines, there needs to be overlap - treatment for the first 5 days of Warfarin therapy. - If discharged on Warfarin prior to 5 days of - overlap therapy, the patient will need to be - assessed for post discharge needs including - *Post discharge parental anticoagulation - *Warfarin and/or parental anticoagulation education - *Follow up date to check INR post discharge At least 5 days overlap therapy as Inpatient No Meds if any: Prescribed or Continued at Discharge Note: Overlap Therapy is Warfarin and Anticoagulant Meds if any: NOT Prescribed or Continued at Discharge
[2017-11-06] MEDS ORDERED: SPIRIVA18 MCG INH (13:42)
[2017-11-06] MEDS ORDERED: FERROUS SULFAT325 M3 PO (13:58)
--- NOTE | 2017-11-06 14:06 | Discharge Summary ---
Visit Information Visit Dates Admission Date: 11/05/17 Discharge Date: 11/06/17 Hospital Course Course Attending Physician: Joslyn Marin MD Primary Care Physician: [facility],Yonas Figueredo Consulting Request: Consulting Specialty: Gastroenterology Consulting Physician: Renny Wiley MD Reason for Consult: abdominal pain and elevated lipase Hospital Course: The patient is 82-year-old gentleman with past medical history of atrial fibrillation on Eliquis and metoprolol, polymyalgia rheumatica, GERD, hypertension, prostate cancer status post surgery and consists versus precancerous colon polyp status post polypectomy The patient is presenting to [place] [facility] on 11/02 with complaint of chest pain. He was initially admitted on telemetry floor and later on was downgraded to general medical floor. During his hospital stay following issues were addressed Problem #1 chest pain to rule out ACS Cardiology evaluation was done. Serial EKGs and troponins were negative and ACS was ruled out. Patient was instructed to follow-up with Dr. Amaro as outpatient to schedule keep your stress test in near future. He is on Eliquis and given guaiac-positive stool his aspirin was held and patient was instructed to stop using aspirin daily he would see Dr. Amaro as outpatient. Problem #2 epigastric discomfort and elevated lipase. Initially CAT scan of abdomen was done to rule out pancreatitis and CT abdomen worse negative for any evidence of pancreatitis. Given his persistent epigastric pain GI evaluation was requested.He was started on dicyclomine 10 mg by mouth half an hour before meals and at bedtime. His proton pump inhibitors were also increased to twice a day. He was also started on sucralfate. Abdominal ultrasound and CTA of the abdomen was done. 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 Endoscopic ultrasound was suggested. According to GI recommendations patient would need EGD as outpatient and further evaluation of his pancreatic mass. Patient was instructed to follow-up with Renny Wiley MD next week in his office. Of note patient came back white count positive during hospital stay. He was discharged on dicyclomine, sucralfate and proton pump inhibitors. His aspirin was held. Problem #3 history of atrial fibrillation and hypertension Patient was continued on his home medication and we will discharge him on same. Allergies: Coded Allergies: Penicillins (Severe, UNKNOWN REACTION PER PT 02/24/16) Significant Procedures: SERVICE DATE: 11/05/17- EXAM TYPE: CAT - CT ABD & PELVIS ANGIOGRAM EXAMINATION: CT ANGIOGRAM ABDOMEN, PELVIS CLINICAL INFORMATION: This is an 82-year-old male with possible intestinal ischemia. History of atrial fibrillation. Pain after meals. Interventional Radiologist: Andrés Pa M.D., F.August.I.Radha., FJennifer.Fiona.R. COMPARISON: Comparison is made to a previous study dated 11/02/2017. Multiple 0.6 mm thick axial sections were obtained through the abdomen, pelvis. This was performed with intravenous contrast injection of 90 cc of Optiray 350 contrast. 3-D reconstructions with MIPS reconstructions were obtained and reviewed at a dedicated workstation. Images were evaluated on an independent dedicated 3-D workstation and 3-D images were reconstructed with concurrent radiologist supervision and subsequently interpreted. DLP: 787 mGy-cm. FINDINGS: VASCULAR: Mild atherosclerotic disease is seen in the descending thoracic aorta without evidence of aneurysm formation. There is scattered atherosclerotic plaque within the renal arteries and the abdominal aorta consistent with atherosclerotic disease. There is no abdominal aortic aneurysm. The 3 mesenteric arteries appear patent. There is a replaced right hepatic artery, a normal variant. No filling defects are demonstrated. The mesenteric venous system could not be evaluated because no delayed images were obtained. FINDINGS: LUNG BASES: Again noted are the linear densities in the lower lung silvestre. This could represent atelectasis versus scarring. Follow-up with a chest x-ray to demonstrate clearing with 1 one month is recommended. There is a calcified granuloma in the right lower lobe. LIVER, GALLBLADDER, AND BILIARY TREE: The liver is normal in size, shape. There may be diffuse decreased density to the liver which may represent hepatic steatosis. No biliary duct dilatation is present. A 1.8 cm low-attenuation lesion in the liver adjacent to the gallbladder (series 2 image 20) represents a cyst by CT Hounsfield units criteria and is stable since the previous ultrasound of 11/20/2015. The gallbladder is unremarkable with no evidence of radiopaque gallstones, gallbladder wall thickening, or obvious pericholecystic inflammatory changes. PANCREAS: There is a 0.8 x 0.7 cm oval, enhancing mass within the tail the pancreas. There is no pancreatic ductal dilatation. 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 Endoscopic ultrasound is recommended. SPLEEN: Unremarkable. ADRENAL GLANDS: Unremarkable. KIDNEYS AND URETERS: The kidneys are normal in size, shape and attenuation. There is no evidence of radiopaque renal or ureteric calculi, hydroureteronephrosis or perinephric stranding. Multiple bilateral hypodense renal lesions consistent with cysts are noted. The largest one arising from the upper pole of the left kidney posteriorly measures 8.8 x 11.7 cm in AP and transverse dimension. Calcifications are noted in the portion of the wall of this cyst posteriorly and inferiorly BLADDER: Unremarkable. GASTROINTESTINAL TRACT: Mild diverticulosis of the sigmoid colon. Isolated diverticula of the remainder of the colon are seen. No evidence of colonic wall thickening or pericolonic fat stranding. An appendix is normal. The stomach and small bowel are not dilated. ABDOMINAL WALL: There is a fat-containing left inguinal hernia extending into the visualized left scrotum. LYMPH NODES: No evidence of pathologically enlarged lymph nodes. PELVIC VISCERA: The prostate is not seen, and there are multiple surgical clips in the deep pelvis, correlate with the previous surgical history. OSSEOUS STRUCTURES: No acute or suspicious osseous abnormality. Mild degenerative changes in the spine. IMPRESSION: 1. There is a 0.8 cm oval enhancing mass in the tail the pancreas. 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 Further evaluation to exclude malignancy is recommended. Endoscopic ultrasound is suggested. 2. No mesenteric arterial stenosis is seen. 3. No inflammation of the bowel is seen. There is diverticulosis without evidence of diverticulitis. Disposition Summary Disposition Principal Diagnosis: Atypical Chest pain,ruled out ACS GERD Additional Diagnosis: Pancreatic lesion. Needs further work up. Discharge Disposition: home or self care Discharge Instructions General Discharge Information Code Status: Full Code Patient's Diet: Heart healthy diet Patient's Activity: As tolerated Follow-Up Instructions/Appts: Please follow up with your PCP in a week of discharge Please follow up with telephone messenger in 1 week of discharge and schedule stress test as out patient Please follow up with Gastroentrologist Dr. Wiley in 1 week of discharge for further investigation of pancreatic mass and scheduling EGD Medications at Discharge Discharge Medications: Stop taking the following medications: Pantoprazole Sodium (Pantoprazole Sodium) 40 MG TABLET.DR ORAL DAILY BEFORE BREAKFAST Qty = 30 Aspirin (Ecotrin) 81 MG ECT ORAL DAILY Continue taking these medications: LISINOPRIL/HYDROCHLOROTHIAZIDE (Lisinopril-Hctz 10-12.5 MG Tab) 10 MG-12.5 MG TABLET 1 Tablet ORAL DAILY Qty = 30 Comments: GIVEN TWO SEPARATE MEDICATIONS 02/25/16 @ 9 AM Alprazolam (Alprazolam) 0.25 MG TABLET 1 Tablet ORAL THREE TIMES DAILY as needed for ANXIETY Qty = 90 Comments: NOT GIVEN IN HOSPITAL Calcium/Vitamin D (Calcium + D) 600 MG/200 IU TAB 1 Tablet ORAL DAILY Comments: Last Taken: 02/25/16 Time: 9 AM [place]-3 Fatty Acids (Fish Oil Concentrate) 1,000 MG CAPSULE 1 Capsule ORAL DAILY Comments: DID NOT TAKE IN HOSPITAL Methylprednisolone (Medrol) 4 MG TABLET 1 Tablet ORAL TWICE DAILY Comments: Last Taken: 11/06/17 Time: 9 AM Apixaban (Eliquis) 5 MG TABLET 1 Tablet ORAL TWICE DAILY Days = 30 Comments: Last Taken:11/06/17 Time:0930 Cyanocobalamin (Vitamin B-12) 1,000 MCG TABLET 3 Tablet ORAL DAILY Comments: NOT GIVEN IN HOSPITAL Magnesium Oxide (Magnesium) 400 MG CAPSULE 1 Capsule ORAL DAILY Comments: Last Taken:11/06/17 Time:0900 Metoprolol Tartrate (Metoprolol Tartrate) 25 MG TABLET 1 Tablet ORAL TWICE DAILY Comments: Last Taken:11/06/17 Time:0900AM Ferrous Sulfate (Ferrous Sulfate) 325 MG (65 MG IRON) TABLET 1 Tablet ORAL DAILY Comments: DID NOT TAKE IN HOSPITAL Start taking the following new medications: Dicyclomine Hydrochloride (Bentyl) 10 MG CAPSULE 20 Milligram ORAL BEFORE MEALS AND AT BEDTIME Qty = 30 No Refills Comments: Last Taken:11/06/17 Time:1230 Sucralfate (Sucralfate) 1 GRAM/10 ML ORAL.SUSP 1 Gram ORAL 4 TIMES A DAY Qty = 30 No Refills Comments: Last Taken:11/06/17 Time:0800 Omeprazole (Omeprazole) 20 MG CAPSULE.DR 40 Milligram ORAL TWICE DAILY Qty = 30 No Refills Comments: Last Taken:11/06/17 Time:0930 Copies To: [facility],Yonas Figueredo Attending Review Statement Documenting Attending: [facility],Joslyn
[2017-11-06 14:15] VITALS: BP 122/80
== END 2017-11-06 14:38 | DRG 392 ==
LOC: ERH 22:52 → 1NO 11-02 00:24 → ERHI 11-02 00:24 → ENRESERV 11-02 14:49 → ERHI 11-02 15:33 → ENTRNSPT 11-02 15:55 → EDTRNSPTSTS 11-02 15:57 → 1NO 11-02 16:15 → CMPTRNSPT 11-02 16:18 → 1NO 11-05 10:44 → 2NA 11-05 10:44 → 1NO 11-05 10:44 → ENTRNSPT 11-05 16:01 → EDTRNSPTSTS 11-05 16:25 → 2NA 11-05 16:33 → CMPTRNSPT 11-05 16:45 → 2NA 11-06 11:25 → ENPENDDIS 11-06 12:22 → ENTRNSPT 11-06 14:28 → EDTRNSPTSTS 11-06 14:30 → 2NA 11-06 14:38 → CMPTRNSPT 11-06 14:42
PROVIDERS: Emergency Medicine; Internal Medicine
DX: K21.9 Gastro-esophageal reflux disease without esophagitis (principal); I48.2 Chronic atrial fibrillation; K86.89 Other specified diseases of pancreas; R07.9 Chest pain, unspecified; I25.10 Atherosclerotic heart disease of native coronary artery without angina pectoris; D50.9 Iron deficiency anemia, unspecified; Z79.01 Long term (current) use of anticoagulants; M35.3 Polymyalgia rheumatica; I10 Essential (primary) hypertension; Z85.46 Personal history of malignant neoplasm of prostate; Z85.038 Personal history of other malignant neoplasm of large intestine; D72.829 Elevated white blood cell count, unspecified; E04.1 Nontoxic single thyroid nodule; K57.30 Diverticulosis of large intestine without perforation or abscess without bleeding
CPT/HCPCS: 2NAP; 36415; 71045; 74174; 74176; 82436; 93005; 93010; 93306; J3490

== ENCOUNTER → 2018-03-09 | Day surgery (SDC) | payer OTHER, MEDICARE ==
[~2018-03-09] VITALS: Ht 180.3 cm; Wt 74.4 kg
[~2018-03-09] MED LIST changes: +ASPIRIN EC81 M1 PO; +BENTYL10 M1 PO; +FERROUS SULFAT325 M3 PO; +LISINOPRIL-HCT1 EAC2 PO; -LISINOPRIL/HCTZ1 TAB PO; +MAGNESIUM400 M1 PO; +OMEPRAZOLE20 M2 PO; +SPIRIVA18 MCG INH; +SUCRALFATE1 GM/10 M1 PO; +VITAMIN B-121000 MC3 PO
--- NOTE | 2018-03-13 06:14 | Operative Report ---
Operative/Inv Procedure Report Surgery Date: 03/09/18 Name of Procedure: Excision of deep back lipoma, 6 cm diameter Pre-Operative Diagnosis: Back lipoma Post-Operative Diagnosis: Same, deep Estimated Blood Loss: scant Surgeon/Sheet Metal Supervisor: [facility],Abdirizak Ash Anesthesia: general endotracheal tube Operative/Procedure Note Note: Patient positioned supine after successful induction of anesthesia patient was turned right lateral down and the top of his back on the left was clipped prepped and draped in usual sterile fashion the mass was palpable but not very mobile we aimed incision following the skin lines over it about 5 cm long mid incision with a 15 blade after injecting local anesthetic, and dissected out the lipoma which was subdermal initially and then tracked deeper into the trapezius muscle was very lobulated with deeper extends laterally care was taken to excise it completely and avoid injury to neurovascular structures especially the possibility of branches of cranial nerve XI, otherwise it was completely removed used cautery for hemostasis there were some muscle fibers that had to be with the specimen tracking deep, the area was checked for hemostasis and closed back up in layers using 2 and 3-0 Vicryl sutures interrupted deep followed by a running subcuticular 4-0 Biosyn suture for the skin itself followed by Mastisol Steri-Strips Telfa and Tegaderm. EBL minimal lap and sponge counts correct wound expectancy clean IV fluids crystalloid complications none patient tolerated the procedure well was extubated and returned to recovery room in satisfactory condition.
== END ==
LOC: STS 03-06 02:26
DX: D17.1 Benign lipomatous neoplasm of skin and subcutaneous tissue of trunk (principal); I10 Essential (primary) hypertension; I48.91 Unspecified atrial fibrillation; Z79.01 Long term (current) use of anticoagulants
CPT/HCPCS: 36415; J2250

== ENCOUNTER 2018-04-29 18:28 | Emergency (ER) | payer OTHER, MEDICARE ==
[~2018-04-29] VITALS: Ht 180.3 cm; Wt 72.1 kg
[2018-04-29 18:51] VITALS: BP 150/82
--- NOTE | 2018-04-29 20:34 | ED UPPER/LOWER EXTREMITY COMPL ---
History of Present Illness General Chief Complaint: Lower Extremity Injury Stated Complaint: PT HAS A CUT ON HIS LT LEG Source: patient Exam Limitations: no limitations Vital Signs & Intake/Output Vital Signs & Intake/Output Vital Signs Date Time Temp Pulse Resp B/P B/P Pulse O2 O2 Flow FiO2 Mean Ox Delivery Rate 04/29 1851 98.5 84 20 150/82 97 Room Air ED Intake and Output 04/30 0000 04/29 1200 Intake Total Output Total Balance Patient 159 lb Weight Weight Reported by Patient Measurement Method Allergies Coded Allergies: Penicillins (Severe, UNKNOWN REACTION PER PT 04/29/18) Reconcile Medications Apixaban (Eliquis) 5 MG TABLET 1 TAB PO BID A.fib Lisinopril/Hydrochlorothiazide (Lisinopril-Hctz 10-12.5 MG Tab) 10 MG-12.5 MG TABLET 1 TAB PO DAILY BP (Reported) Methylprednisolone (Medrol) 4 MG TABLET 1 TAB PO BID PMR (Reported) Metoprolol Tartrate 25 MG TABLET 1 TAB PO BID HEART HEALTH (Reported) Triage Note: TRIAGE: PT TO ER C/C LACERATION TO LLE. STATES HE ACCIDENTALLY KICKED HIMSELF IN THE LEG "AND TOOK A CHUNK OUT". HAS DRESSING IN PLACE AT TRIAGE, WOUND NOT VISUALIZED. TAKES ELIQUIS R/T HX AFIB. Triage Nurses Notes Reviewed? yes Onset: Abrupt Duration: constant Timing: single episode today Severity: moderate Severity Numbers: 5 HPI: Patient is a 83-year-old male who presents emergency room with concerns of axillary striking his left heel calf with the heel of his other shoe while walking today resulting in a laceration was bleeding was controlled prior to arrival patient is on ELIQUIS (Trent Andre) Past History Travel History Traveled to [place] past 21 day No Medical History Any Pertinent Medical History? see below for history Neurological: NONE EENT: HEARING LOSS Cardiovascular: AFIB, hypertension Respiratory: NONE Gastrointestinal: GERD Hepatic: NONE Renal: NONE Musculoskeletal: POLYMYALGIA RHEUMATICA Psychiatric: NONE Endocrine: NONE Blood Disorders: NONE Cancer(s): prostate cancer, PRE CANCER POLYP SKIN CANCER SPOT ON PANCREAS-? CANCER (BEING WORKED UP) TAX EXPERT/Reproductive: NONE History of MRSA: No History of VRE: No History of CDIFF: No Influenza Vaccine: 07/16/17 Tetanus Vaccine: 08/27/14 Surgical History Surgical History: PROSTATE REMOVAL, CA BACK SURGERY Psychosocial History Who do you live with Spouse Services at Home None What is your primary language Welsh Tobacco Use: Never used ETOH Use: occasional use Illicit Drug Use: denies illicit drug use Family History Family History, If Any: MOTHER (brain CA). FATHER (CVA). SISTER (breast CA). Hx Contributory? No (Trent Andre) Review of Systems Review of Systems Constitutional: Reports: no symptoms. EENTM: Reports: no symptoms. Respiratory: Reports: no symptoms. Cardiovascular: Reports: no symptoms. Gastrointestinal/Abdominal: Reports: no symptoms. Genitourinary: Reports: no symptoms. Musculoskeletal: Reports: see HPI. Skin: Reports: see HPI. Neurological/Psychological: Reports: no symptoms. Hematologic/Endocrine: Reports: see HPI. Immunological: Reports: no symptoms. All Other Systems: Reviewed and Negative (Trent Andre) Physical Exam Physical Exam General Appearance: no apparent distress, alert Head: atraumatic Eyes: Bilateral: normal appearance. Ears, Nose, Throat: hearing grossly normal Cardiovascular/Respiratory: no respiratory distress Neurologic/Tendon: normal sensation, normal motor functions, normal tendon functions, responds to pain, no evidence tendon injury, no pulse deficit Skin: normal color Diagram Legs Front/Back 1) Noted 2 cm x 2 cm 90 angled superficial skin tear (Trent Andre) Progress Differential Diagnosis: arterial insufficiency, compartment syndrome, contusion, dislocation, DVT, fracture, gout, septic arthritis, sprain, tendon injury Plan of Care: Current Medications Sig/Nelly Start time Last Medication Dose Stop Time Status Admin Tetanus/Diphtheria 0.5 ML ONCE ONE 04/29 2100 UNVr 04/29 Toxoids Adsorbed 04/29 ([facility]) On examination no concerns of tendon deficit or fracture The site was irrigated with sterile water and Betadine was applied and margins were revised with Steri-Strips Telfa and bandage was applied Patient had normal steady gait on discharge (Trent Andre) Departure Departure Disposition: HOME OR SELF CARE Condition: Stable Clinical Impression Primary Impression: Skin tear of left lower leg without complication Referrals: [facility],Yonas Figueredo (PCP/Family) Additional Instructions: As discussed if you note signs infection redness, pain, swelling, discharge return to emergency room, THE Steri-Strips that have been applied to you in the emergency room, follow-up and approximate 4 days change dressings once a day. Keep area dry and clean as YOU can. Follow-up with your primary care doctor next week Departure Forms: Customer Survey General Discharge Information (Desirae ARECHIGA,Trent) PA/WARP CHANGER Co-Sign Statement Statement: ED Attending supervision documentation- [x] I saw and evaluated the patient. I have also reviewed all the pertinent lab results and diagnostic results. I agree with the findings and the plan of care as documented in the PA's/WARP CHANGER's documentation. [] I have reviewed the ED Record and agree with the PA's/WARP CHANGER's documentation. [] Additions or exceptions (if any) to the PAs/WARP CHANGER's note and plan are summarized below: [] ([facility],Kian Miller)
== END 2018-04-29 21:28 ==
LOC: ERH 18:28
DX: S81.812A Laceration without foreign body, left lower leg, initial encounter (principal); W22.8XXA Striking against or struck by other objects, initial encounter; Y93.01 Activity, walking, marching and hiking; Y92.9 Unspecified place or not applicable
CPT/HCPCS: 90471; 90714